=== PATIENT | male | born 1935 | race Caucasian/White ===

== ENCOUNTER 2017-09-20 03:14 | Inpatient (IN) ==
[2017-09-20] MEDS ORDERED: Ipratropium/Albuterol Neb 3 ML IH ONE (03:22)
[2017-09-20] MEDS ORDERED: Nitroglycerin 1 INCH/GM PACKET TP ONE (03:25)
[2017-09-20] MEDS ORDERED: Furosemide 40 MG/4 ML VIAL IVP ONE (03:25)
[2017-09-20 03:37] LABS: Basophils % 0.3 %; Eosinophils # 0.2 K/mcL (0.0-0.6); Hematocrit 36.8 % (37.5-50.1); Hemoglobin 11.1 g/dL (12.9-16.9); Immature Granulocytes % 0.4 % (0-4); Lymphocytes # 0.9 K/mcL (0.6-4.6); Lymphocytes % 8.8 %; Mean Corpuscular HGB Conc 30.2 g/dL (31.6-35.5); Mean Corpuscular Hemoglobin 27.5 pg (28.0-33.3); Mean Corpuscular Volume 91.1 fL (83.0-100.0); Mean Platelet Volume 9.2 fL (9.4-12.4); Monocytes # 0.9 K/mcL (0.0-1.3); Monocytes % 9.2 %; Neutrophils # 8.1 K/mcL (1.6-8.9); Platelet Count 295 K/mcL (140-400); Red Blood Count 4.04 M/mcL (4.19-5.50); Red Cell Distribution Width 14.5 % (11.5-14.5); Segmented Neutrophils % 79.3 %
[2017-09-20 03:55] LABS: Prothrombin Time 21.5 Seconds (9.4-12.1)
[2017-09-20 03:58] LABS: Activated Partial Thrombo Time 32.7 Seconds (26.0-36.0)
[2017-09-20 04:03] LABS: Calcium 9.8 mg/dL (8.6-10.3); Potassium 4.7 mEq/L (3.5-5.1)
[2017-09-20 04:07] LABS: Troponin I 0.05 ng/mL (< 0.04)
--- NOTE | 2017-09-20 04:12 | Emergency Department Note ---
Disposition Clinical Impression: CHF (congestive heart failure) Qualifiers: Heart failure type: diastolic Heart failure chronicity: acute on chronic Qualified Code(s): I50.33 - Acute on chronic diastolic (congestive) heart failure COPD (chronic obstructive pulmonary disease) Qualifiers: COPD type: unspecified COPD Qualified Code(s): J44.9 - Chronic obstructive pulmonary disease, unspecified Disposition: Admitted As Inpatient Condition: Fair Time of Disposition: 04:27 SOB HPI - General Chief Complaint: ED Shortness of Breath/Dyspnea Stated Complaint: Difficulty breathing Time Seen by Provider: 09/20/17 03:19 Source: patient, EMS Mode of arrival: ambulatory Limitations: no limitations Nursing Notes Reviewed: Yes Vital Signs Reviewed: Yes - History of Present Illness 82-year-old male presents to the emergency department complaining of shortness of breath. Patient was recently discharged out of [facility] for CHF and having a pacemaker placed at that time. He was doing well when also and sitting down in his chair he started having shortness of breath. Patient has a history of COPD. He is always on 2.5 L of oxygen via nasal cannula. He has never had to be intubated. Patient states that he has been taking his normal medications. He is on Coumadin as he does have history of A. fib. Has been well controlled. He states he has not had any chest pain. EMS did give him albuterol treatment as they felt better after that. Patient otherwise has no complaints having fevers, nausea, vomiting, chills, back pain, neck pain, headache, blurry vision, chest pain, abdominal pain, pain with urination, changes in bowel movement, pain or tingling on the arms or legs or generalized weakness. - Related Data Home Medications Medication Instructions Recorded Confirmed Albuterol Neb [Proventil Neb] 3 ml IH Q4-6H PRN 10/29/15 08/09/17 Atorvastatin [Lipitor] 80 mg PO DAILY 10/29/15 08/09/17 Fenofibrate 145 mg PO DAILY 10/29/15 08/09/17 Amlodipine Besylate 10 mg PO DAILY 05/21/16 08/09/17 Clopidogrel [Plavix] 75 mg PO DAILY 05/21/16 08/09/17 Nystatin POWDER [Nystop] 1 appl TP BID 05/21/16 08/09/17 Warfarin perPT [Coumadin perPT] 5 mg PO DAILY 05/21/16 08/09/17 Albuterol Sulfate [Proair Hfa] 2 puff IH Q4H PRN 06/30/16 08/09/17 Ferrous Sulfate [Iron] 325 mg PO DAILY 06/30/16 08/09/17 Multivitamin [Multi-Day Vitamins] 1 tab PO DAILY 06/30/16 08/09/17 Oxygen 1 each .ROUTE AD 06/30/16 08/09/17 Warfarin [Coumadin] 7.5 mg PO Q48H 06/30/16 08/09/17 Docusate Sodium [Stool Softener] 100 mg PO DAILY 03/15/17 08/09/17 Metoprolol Succinate 100 mg PO DAILY 03/15/17 08/09/17 dilTIAZem HCl [Diltiazem 24Hr ER] 120 mg PO DAILY 08/09/17 08/09/17 Previous Rx's Medication Instructions Recorded Furosemide [Lasix] 40 mg PO DAILY #30 tablet 11/09/15 Omeprazole [PriLOSEC] 20 mg PO DAILY #30 capsule. 11/09/15 Allergies Allergy/AdvReac Type Severity Reaction Status Date / Time No Known Allergies Allergy Verified 09/20/17 03:16 Review of Systems: 10 point review of systems done and negative unless otherwise stated in the history of present illness. All systems ED: reviewed and negative except as stated. Review of Systems: As Per HPI Past Medical History - Past Medical History Attestation: Yes The following information was validated with the patient. Source: patient Medical history: Reports: atrial fibrillation, CHF, COPD, coronary artery disease, GERD, hyperlipidemia, hypertension, other Surgical history: Reports: coronary bypass (CABG), heart valve replacement, herniorrhaphy, hip replacement, sinus surgery, vasectomy Psychiatric history: Reports: no psych history - Social History Smoking Status: Former smoker Smokeless Tobacco Status: No Alcohol use: Reports: none Drug use: Reports: none Physical Exam - General Limitations: no limitations General appearance: alert, in no apparent distress - Head Head exam: atraumatic, normocephalic, normal inspection - Eye Eye exam: Present: normal appearance, PERRL, EOMI - ENT ENT exam: normal exam, normal oropharynx, mucous membranes moist - Neck Neck exam: Present: normal inspection, full ROM, trachea midline - Chest Chest inspection: Present: normal inspection, symmetric chest wall rise - Respiratory Respiratory exam: Present: wheezes (Mild wheezes bilaterally that are noticeable Rales in the bases with deep inspiration.), accessory muscle use. Absent: respiratory distress, prolonged expiratory phase - Cardiovascular Cardiovascular exam: Present: regular rate, normal rhythm, normal heart sounds - Abdominal Exam Abdominal exam: Present: soft, Non-Tender. Absent: tenderness, distention, guarding, rebound, rigidity - Extremities Exam Extremities exam: Present: normal inspection, full ROM, pedal edema (1+ pitting edema bilaterally). Absent: tenderness - Expanded Lower Extremity Exam Neurovascular/Tendon exam: Present: normal capillary refill. Absent: pulse deficit, motor deficit, sensory deficit, tendon deficit - Back Exam Back exam: Present: normal inspection, full ROM. Absent: tenderness, CVA tenderness (R), CVA tenderness (L) - Neurological Exam Neurological exam: Present: alert, oriented X3 - Skin Skin exam: Present: warm, dry, intact, normal color Course Course Narrative: 82-year-old male presented to emergency department complaining of shortness of breath. This is CHF versus COPD exacerbation. They gave him triple DuoNeb treatment did help open his lungs. After listening we did here also we did give him nitro paste as well as 40 mg IV Lasix. Did do basic labs including CBC , BMP, troponin, BNP as well as EKG and chest x-ray. The disposition will be admission. Vital Signs Temperature 97.5 F L 09/20/17 03:17 Pulse Rate 62 09/20/17 03:17 Respiratory Rate 25 09/20/17 03:17 Blood Pressure 165/68 09/20/17 03:17 O2 Sat by Pulse Oximetry 86 09/20/17 03:17 Temperature 97.5 F L 09/20/17 03:17 Pulse Rate 62 09/20/17 03:17 Respiratory Rate 17 09/20/17 03:39 Blood Pressure 165/68 09/20/17 03:17 O2 Sat by Pulse Oximetry 95 09/20/17 04:45 Oxygen Delivery Oxygen Delivery Room Air Shortness of Breath/Dyspnea - MDM Narrative Medical decision making narrative: 82-year-old male presents to the emergency department complaining of shortness of breath. This most likely is CHF did give nitro paste as well as Lasix. Patient doing better after that. He still on 2-1/2 L of oxygen as as well as always on at home. Patient is saturating well on that. X-ray did show pleural effusion possibly pneumonia but this could be CHF. Will not treat Reed Interiano at this time and continue having follows he does have a leukocytosis or fever at this time. Patient is having chest pain. He did have elevated troponin most likely due to demand ischemia from his CHF. EKG had no acute findings. Spoke with the hospitalist Dr. Ortiz agreed to admit the patient to their service. Patient is admitted in stable condition. Chest X-Ray 09/20/17 03:22 IMPRESSION: Right pleural effusion with right basilar atelectasis versus pneumonia. D/ / Agusto Michael MD / Agusto Michael MD Interpreting Provider: Agusto Michael MD - Medical Records Medical records reviewed: Yes I reviewed the patient's medical records. - Lab Data Lab results reviewed: Yes I reviewed the patient's lab results. Result diagrams: 09/20/17 03:22 09/20/17 03:22 Lab Results 09/20/17 09/20/17 09/20/17 Range/Units 03:22 03:22 03:22 WBC 10.2 (4.3-11.1) K/mcL RBC 4.04 L (4.19-5.50) M/mcL Hgb 11.1 L (12.9-16.9) g/dL Hct 36.8 L (37.5-50.1) % MCV 91.1 (83.0-100.0) fL MCH 27.5 L (28.0-33.3) pg MCHC 30.2 L (31.6-35.5) g/dL RDW 14.5 (11.5-14.5) % Plt Count 295 (140-400) K/mcL MPV 9.2 L (9.4-12.4) fL Immature Gran % 0.4 (0-4) % Seg Neutrophils % 79.3 % Lymphocytes % 8.8 % Monocytes % 9.2 % Eosinophils % 2.0 % Basophils % 0.3 % Neutrophils # 8.1 (1.6-8.9) K/mcL Lymphocytes # 0.9 (0.6-4.6) K/mcL Monocytes # 0.9 (0.0-1.3) K/mcL Eosinophils # 0.2 (0.0-0.6) K/mcL Basophils # 0.0 (0.0-0.2) K/mcL PT 21.5 H (9.4-12.1) Seconds INR 2.0 APTT 32.7 (26.0-36.0) Seconds Sodium 140 (136-145) mEq/L Potassium 4.7 (3.5-5.1) mEq/L Chloride 97 L (98-107) mEq/L Carbon Dioxide 37 H (23-29) mEq/L BUN 45 H (8-23) mg/dL Creatinine 1.88 H (0.70-1.30) mg/dL Est GFR ( Amer) 42 L (> 60) Est GFR (Non-Af Amer) 34 L (> 60) BUN/Creatinine Ratio 24 (6-26) Glucose 127 H (70-105) mg/dL Calculated Osmolality 303 H (280-300) Calcium 9.8 (8.6-10.3) mg/dL Troponin I 0.05 H* (< 0.04) ng/mL B-Natriuretic Peptide (Less than 100) pg/mL 09/20/17 Range/Units 03:22 WBC (4.3-11.1) K/mcL RBC (4.19-5.50) M/mcL Hgb (12.9-16.9) g/dL Hct (37.5-50.1) % MCV (83.0-100.0) fL MCH (28.0-33.3) pg MCHC (31.6-35.5) g/dL RDW (11.5-14.5) % Plt Count (140-400) K/mcL MPV (9.4-12.4) fL Immature Gran % (0-4) % Seg Neutrophils % % Lymphocytes % % Monocytes % % Eosinophils % % Basophils % % Neutrophils # (1.6-8.9) K/mcL Lymphocytes # (0.6-4.6) K/mcL Monocytes # (0.0-1.3) K/mcL Eosinophils # (0.0-0.6) K/mcL Basophils # (0.0-0.2) K/mcL PT (9.4-12.1) Seconds INR APTT (26.0-36.0) Seconds Sodium (136-145) mEq/L Potassium (3.5-5.1) mEq/L Chloride (98-107) mEq/L Carbon Dioxide (23-29) mEq/L BUN (8-23) mg/dL Creatinine (0.70-1.30) mg/dL Est GFR ( Amer) (> 60) Est GFR (Non-Af Amer) (> 60) BUN/Creatinine Ratio (6-26) Glucose (70-105) mg/dL Calculated Osmolality (280-300) Calcium (8.6-10.3) mg/dL Troponin I (< 0.04) ng/mL B-Natriuretic Peptide 241 H (Less than 100) pg/mL - Radiology Data Radiology results reviewed: Yes I reviewed the patient's radiology results. - EKG Data EKG attestation: Yes I reviewed and interpreted this EKG. EKG results narrative: EKG done at 0 331 review myself and attending shows atrially placed rhythm as well as a ventricular paced rhythm at a rate of 61, NM interval 174, QRS 03, QTc 525 with a leftward axis there is no acute ST changes no acute T wave of generalized other signs of ischemia. EKG is changed from previous as he was in atrial flutter and tachycardia but recently had a pacemaker since was EKG is changed. Attestation Statement - Attestation Attestation: I examined this patient and my medical decision-making was reviewed with the Resident Physician. I agree with the documented findings, disposition and treatment plan as described except to the extent set forth below. Findings consistent with dyspnea related to heart failure. The patient was recently discharged from [facility] and a pacemaker placed. Now has pleural effusion. Plan to [facility], admitted for dyspnea in the setting of known worsening heart failure.
[2017-09-20] MEDS ORDERED: Acetaminophen 325 MG TABLET PO PRN (04:41)
[2017-09-20] MEDS ORDERED: Naloxone 0.4 MG/ML INJ IVP PRN (04:41)
[2017-09-20] MEDS ORDERED: Ipratropium/Albuterol Neb 3 ML IH PRN (04:44)
--- NOTE | 2017-09-20 04:55 | Internal Med History&Physical ---
Date of Encounter: 09/20/17 Time of Encounter: 04:00 Assessment and Plan (1) Pneumonia Current visit: Yes Status: Acute Patient has increased the shortness of breath. Chest x-ray shows possible pneumonia. Considering patient has COPD. We will treat patient as early stage pneumonia. - Place patient on azithromycin and Rocephin - Continue oxygen supportive treatment Qualifiers: Pneumonia type: due to Pneumococcus Laterality: bilateral Lung location: lower lobe of lung Qualified Code(s): J13 - Pneumonia due to Streptococcus pneumoniae (2) CHF exacerbation Current visit: Yes Status: Acute Patient has history of CHF. Increase the shortness of breath. Mild elevated BNP to 241. Patient is obese so the actual BNP probably even higher. Consider CHF exacerbation. - Place patient on fluid restriction - Strict I and O - Lasix to 40 mg IV daily - Bodyweight daily Qualifiers: Heart failure type: diastolic Qualified Code(s): I50.33 - Acute on chronic diastolic (congestive) heart failure (3) COPD exacerbation Current visit: Yes Status: Acute Patient has a history of COPD. Increased shortness of breath. Patient has a wheezing bilaterally. Consider COPD exacerbation. - Continue antibiotic, steroid, and bronchodilator (4) CKD (chronic kidney disease) Current visit: Yes Status: Acute Patient's creatinine level is at about baseline. Continue closely monitor renal function Qualifiers: Chronic kidney disease stage: stage 3 (moderate) Qualified Code(s): N18.3 - Chronic kidney disease, stage 3 (moderate) (5) DVT prophylaxis Current visit: No Status: Acute Patient is on Coumadin (6) A-fib Current visit: Yes Status: Acute Heart rate is well controlled on pacing rhythm. Continue by mouth Cardizem and metoprolol for rate control. Continue Coumadin for anticoagulation. Qualifiers: Atrial fibrillation type: chronic Qualified Code(s): I48.2 - Chronic atrial fibrillation Internal Medicine - H&P: HPI Chief complaint: Shortness of breath Admitted From: Home Plans for Post Hospital Care: Home History of present illness: Mr. Momin is a 82 year old male with history of A. fib on Coumadin S/P PPM, CHF, CK D, hypertension, COPD, presented to ER for shortness of breath. Patient said the shortness of breath started around 9 PM in the evening. Patient denies chest pain, denies nausea, patient has no cough, no fever. Patient said sitting up makes him feel better. Patient has a mild bilateral leg swelling. Patient denies recent body weight gain. In the emergency room, he was given Lasix, nebulizer, and steroid, his shortness of breath has improved after treatment. He was admitted for further management. Past Med Surg Social Fam HX - Past Medical History Medical history: atrial fibrillation, CHF, COPD, coronary artery disease, GERD, hyperlipidemia, hypertension, other Psychiatric history: no psych history - Past Surgical History Surgical History: coronary bypass (CABG), heart valve replacement, herniorrhaphy , hip replacement, sinus surgery, vasectomy - Social History Smoking Status: Former smoker Smokeless Tobacco Status: No Alcohol use: none Drug use: none - Family History Mother Living Status: Hx Family Cardiac Disorders: Yes (CHF) Hx Family Endocrine Disorder: Yes Father Living Status: Hx Family Cancer: Yes (prostate cancer) Sister Living Status: Hx Family Cardiac Disorders: Yes Brother Family Member Ethnicity: Non- Living Status: Hx Family Cardiac Disorders: No Hx Family Respiratory Disorders: No Hx Family Cancer: Yes (prostate cancer) Hx Family GI Disorders: No Hx Family Endocrine Disorder: No Internal Medicine - H&P: Meds Albuterol Neb [Proventil Neb] 3 ml IH Q4-6H PRN 10/29/15 [History] Atorvastatin [Lipitor] 80 mg PO DAILY 10/29/15 [History] Fenofibrate 145 mg PO DAILY 10/29/15 [History] Furosemide [Lasix] 40 mg PO DAILY #30 tablet 11/09/15 [Rx] Omeprazole [PriLOSEC] 20 mg PO DAILY #30 capsule. 11/09/15 [Rx] Amlodipine Besylate 10 mg PO DAILY 05/21/16 [History] Clopidogrel [Plavix] 75 mg PO DAILY 05/21/16 [History] Nystatin POWDER [Nystop] 1 appl TP BID 05/21/16 [History] Warfarin perPT [Coumadin perPT] 5 mg PO DAILY 05/21/16 [History] Albuterol Sulfate [Proair Hfa] 2 puff IH Q4H PRN 06/30/16 [History] Ferrous Sulfate [Iron] 325 mg PO DAILY 06/30/16 [History] Multivitamin [Multi-Day Vitamins] 1 tab PO DAILY 06/30/16 [History] Oxygen 1 each .ROUTE AD 06/30/16 [History] Warfarin [Coumadin] 7.5 mg PO Q48H 06/30/16 [History] Docusate Sodium [Stool Softener] 100 mg PO DAILY 03/15/17 [History] Metoprolol Succinate 100 mg PO DAILY 03/15/17 [History] dilTIAZem HCl [Diltiazem 24Hr ER] 120 mg PO DAILY 08/09/17 [History] 3 Allergy/AdvReac Type Severity Reaction Status Date / Time No Known Allergies Allergy Verified 09/20/17 03:16 All Systems PM: A 10-system review of systems was performed and is negative for pertinent findings except as documented above in the HPI. - Constitutional Vitals: Temp Pulse Resp BP Pulse Ox 97.5 F L 62 17 165/68 95 09/20/17 03:17 09/20/17 03:17 09/20/17 03:39 09/20/17 03:17 09/20/17 04:45 General appearance: Present: A&O X 3, no acute distress, answers questions appropriately - Head Head exam: Present: atraumatic, normocephalic - Eye Eye exam: Present: PERRL, conjuntiva pink, sclera anicteric Pupils: Present: PERRL - Neck Neck exam general surgery: Present: supple, trachea midline. Absent: lymphadenopathy - Respiratory Respiratory exam: Present: CTAB, wheezes (Scattered wheezes bilaterally). Absent: accessory muscle use, rales, rhonchi - Cardiovascular Cardiovascular exam: Present: RRR, +S1, +S2. Absent: diastolic murmur, gallop, rubs, systolic murmur - GI/Abdominal GI/Abdominal exam: Present: normal bowel sounds, soft, no peritoneal signs. Absent: distended, tenderness - Extremities Exam Extremities exam: Present: pedal edema (Mild pedal edema bilaterally), warm, radial pulses palpable and symmetrical. Absent: calf tenderness, cyanotic - Neurological Exam Neurological exam: Present: CN II-XII intact, oriented X3, no focal deficits. Absent: pronater drift, facial droop, speech deficit - Skin Skin exam: Present: dry, intact Internal Med - H&P Results - Labs CBC & Chem 7: 09/20/17 03:22 09/20/17 03:22 - EKG Data -: EKG Interpreted by Myself (Pacing rhythm) Rate: normal
[2017-09-20] MEDS ORDERED: Azithromycin 500 MG in D5% in Water 250 ML IVPB SCH (05:00)
--- NOTE | 2017-09-20 08:28 | Internal Med Progress Note ---
<Oral Munoz - Last Filed: 09/20/17 13:36> Date of Encounter: 09/20/17 Time of Encounter: 08:26 - Assessment and plan (1) CHF exacerbation Current Visit: Yes Status: Acute Assessment and plan: Patient has history of CHF Last echo was performed on 07/20/16; demonstrated the following: Grossly normal left ventricular size and function. Left ventricular function not well assessed due to atrial flutter with RVR and shadowing from significantly calcified mitral valve. Mildly dilated left atrium. Bioprosthetic aortic valve. Moderate to severe mitral annular calcification. Moderate mitral stenosis. -Increase the shortness of breath -Mild elevated BNP at 241 -Patient is obese so the actual BNP probably even higher -Place patient on fluid restriction; Strict I and O; Bodyweight daily -Lasix 40 mg IV BID Qualifiers: Heart failure type: diastolic Qualified Code(s): I50.33 - Acute on chronic diastolic (congestive) heart failure (2) CAD (coronary artery disease) Current Visit: No Status: Chronic Assessment and plan: -Troponin was slightly elevated at 0.05. -Plavix 75 mg by mouth daily -Lipitor 80 mg by mouth daily -Continuous cardiac monitoring -Echocardiogram has been ordered Qualifiers: Coronary Disease-Associated Artery/Lesion type: [place] artery [place] vs. transplanted heart: [place] heart Associated angina: without angina Qualified Code(s): I25.10 - Atherosclerotic heart disease of [place] coronary artery without angina pectoris (3) COPD exacerbation Current Visit: Yes Status: Acute Assessment and plan: Patient has a history of COPD -Increased shortness of breath; wheezing bilaterally -Duoneb 3 mL inhaled every 4 when necessary -Prednisone 40 mg by mouth daily (4) CKD (chronic kidney disease) Current Visit: Yes Status: Acute Assessment and plan: -Patient's creatinine level is at about baseline -Continue closely monitor renal function Qualifiers: Chronic kidney disease stage: stage 3 (moderate) Qualified Code(s): N18.3 - Chronic kidney disease, stage 3 (moderate) (5) A-fib Current Visit: Yes Status: Acute Assessment and plan: -HR is well controlled on pacing rhythm -Continue Coumadin for anticoagulation -Cardizem CD 120 mg by mouth daily -Metoprolol XL 100 mg by mouth daily Qualifiers: Atrial fibrillation type: chronic Qualified Code(s): I48.2 - Chronic atrial fibrillation (6) DVT prophylaxis Current Visit: No Status: Acute Assessment and plan: -Patient is on Coumadin - Subjective Interval history: 82-year-old male. Presented to ED with shortness of breath. Was recently discharged from [place] for CHF exacerbation; had pacemaker placed at that time. Was doing well. Patient has no history of COPD. On 2.5 L of home O2 at all times. Began to feel short of breath. EMS gave him albuterol treatment; slight improvement in symptoms. Upon arrival, patient was also given Nitropaste and 40 mg IV Lasix. X-ray demonstrated pleural effusion with possible pneumonia. Zithromax and Rocephin were both started. Blood and sputum cultures are pending. BNP was slightly elevated at 241. Patient was placed on Lasix 40 mg IV daily. Troponin was slightly elevated at 0.05. Echocardiogram has been ordered. Patient was also placed on DuoNeb nebs as needed and prednisone 40 mg by mouth daily. Patient has known history of A. fib ; currently on Coumadin. He is currently rate controlled on metoprolol XL and Cardizem CD. - Constitutional Vitals: Temp Pulse Resp BP Pulse Ox 97.6 F 60 15 144/61 97 09/20/17 06:59 09/20/17 06:59 09/20/17 06:59 09/20/17 06:59 09/20/17 06:59 General appearance: Present: A&O X 3, no acute distress, answers questions appropriately - Head Head exam: Present: atraumatic, normocephalic - Eye Eye exam: Present: PERRL, conjuntiva pink, sclera anicteric Pupils: Present: PERRL - Neck Neck exam general surgery: Present: supple, trachea midline. Absent: lymphadenopathy - Respiratory Respiratory exam: Present: CTAB. Absent: accessory muscle use, rales, rhonchi, wheezes - Cardiovascular Cardiovascular exam: Present: RRR, +S1, +S2. Absent: diastolic murmur, gallop, rubs, systolic murmur - GI/Abdominal GI/Abdominal exam: Present: normal bowel sounds, soft, no peritoneal signs. Absent: distended, tenderness - Extremities Exam Extremities exam: Present: warm, radial pulses palpable and symmetrical. Absent : calf tenderness, cyanotic, pedal edema - Neurological Exam Neurological exam: Present: CN II-XII intact, oriented X3, no focal deficits. Absent: pronater drift, facial droop, speech deficit - Skin Skin exam: Present: dry, intact Internal Medicine: Result - Labs CBC & Chem 7: 09/20/17 03:22 09/20/17 03:22 - ABG Interpretation ABG results: PT/INR, D-dimer PT 21.5 Seconds (9.4-12.1) H 09/20/17 03:22 Consult Discharge Plan - Plan Referrals: Ervin Cole MD [Primary Care Provider] - <Maximilian Flynn - Last Filed: 09/20/17 14:57> Date of Encounter: 09/20/17 - Constitutional Vitals: Temp Pulse Resp BP Pulse Ox 97.9 F 60 15 138/62 95 09/20/17 11:30 09/20/17 11:30 09/20/17 11:30 09/20/17 11:30 09/20/17 11:30 Internal Medicine: Result - Labs CBC & Chem 7: 09/20/17 03:22 09/20/17 03:22 - ABG Interpretation ABG results: PT/INR, D-dimer PT 21.5 Seconds (9.4-12.1) H 09/20/17 03:22 - Attending Attestation I performed an independent interview and exam of this patient. I agree with the findings, assessment, and plan of Dr. Munoz, internal medicine corporate communications intern. We are treating patient primarily for acute on chronic diastolic CHF. He appears to responding well to IV Lasix. Does have [id number] stenosis and this may be contributing as well. Did stop antibiotics is patient is not showing any obvious evidence bacterial pneumonia. Continue with oral prednisone for COPD exacerbation. We will need to monitor renal function closely as he is being diuresed. Patient's A. fib is under good rate control, INR is at goal.
[2017-09-20] MEDS ORDERED: cefTRIAXone 1,000 MG in Water for inj. (sterile) 20 ML 10 ML IVP SCH (09:00)
[2017-09-20] MEDS ORDERED: Furosemide 40 MG/4 ML VIAL IVP SCH (09:00)
[2017-09-20] MEDS: Ipratropium/Albuterol Neb 3 ML IH SCH ×3 (09:17→21:23)
[2017-09-20] MEDS: Diltiazem CD (24hr) 120 MG CAPSULE PO SCH (09:46)
[2017-09-20] MEDS: Metoprolol XL (24 HR) Succ 50 MG TAB.ER.24H PO SCH (09:46)
[2017-09-20] MEDS: predniSONE 20 MG TABLET PO SCH (09:46)
[2017-09-20] MEDS: Furosemide 40 MG/4 ML VIAL IVP SCH (17:45)
[2017-09-20] MEDS ORDERED: *HR* Warfarin 5 MG TABLET PO ONE (18:00)
[2017-09-20] MEDS ORDERED: Warfarin perPT PO PRN (18:00)
[2017-09-21] MEDS: Ipratropium/Albuterol Neb 3 ML IH SCH ×4 (04:25→21:48)
[2017-09-21 04:58] LABS: Basophils % 0.1 %; Eosinophils % 0.1 %; Hematocrit 30.7 % (37.5-50.1); Immature Granulocytes % 0.7 % (0-4); Lymphocytes # 0.7 K/mcL (0.6-4.6); Lymphocytes % 6.9 %; Mean Corpuscular HGB Conc 30.3 g/dL (31.6-35.5); Mean Corpuscular Hemoglobin 27.4 pg (28.0-33.3); Mean Corpuscular Volume 90.6 fL (83.0-100.0); Mean Platelet Volume 9.6 fL (9.4-12.4); Monocytes # 0.8 K/mcL (0.0-1.3); Monocytes % 8.5 %; Neutrophils # 7.9 K/mcL (1.6-8.9); Platelet Count 277 K/mcL (140-400); Red Blood Count 3.39 M/mcL (4.19-5.50); Red Cell Distribution Width 14.5 % (11.5-14.5); Segmented Neutrophils % 83.7 %
[2017-09-21 05:04] LABS: Hemoglobin 9.3 g/dL (12.9-16.9)
[2017-09-21 05:10] LABS: INR 1.8
[2017-09-21 05:23] LABS: Calcium 9.3 mg/dL (8.6-10.3); Chol/HDL Ratio 2.6 (0-4.9); Magnesium 2.3 mg/dL (1.6-2.6); Potassium 4.3 mEq/L (3.5-5.1)
[2017-09-21] MEDS: Diltiazem CD (24hr) 120 MG CAPSULE PO SCH (08:47)
[2017-09-21] MEDS: predniSONE 20 MG TABLET PO SCH (08:47)
[2017-09-21] MEDS: Metoprolol XL (24 HR) Succ 50 MG TAB.ER.24H PO SCH (08:47)
[2017-09-21] MEDS: Furosemide 40 MG/4 ML VIAL IVP SCH ×2 (08:48→18:00)
--- NOTE | 2017-09-21 08:52 | Internal Med Progress Note ---
<Oral Munoz - Last Filed: 09/21/17 11:37> Date of Encounter: 09/21/17 Time of Encounter: 08:50 - Assessment and plan (1) CHF exacerbation Current Visit: Yes Status: Acute Assessment and plan: Patient has history of CHF Last echo was performed on 07/20/16; demonstrated the following: Grossly normal left ventricular size and function. Left ventricular function not well assessed due to atrial flutter with RVR and shadowing from significantly calcified mitral valve. Mildly dilated left atrium. Bioprosthetic aortic valve. Moderate to severe mitral annular calcification. Moderate mitral stenosis. -Increase the shortness of breath -Mild elevated BNP at 241 -Patient is obese so the actual BNP probably even higher -Place patient on fluid restriction; Strict I and O; Bodyweight daily -We will switch Lasix to oral Qualifiers: Heart failure type: diastolic Qualified Code(s): I50.33 - Acute on chronic diastolic (congestive) heart failure (2) Anemia Current Visit: Yes Status: Acute Assessment and plan: Patient experienced a significant drop in hemoglobin in the last 24 hours -Hemoglobin decreased from 11.1 to 9.3. -Patient denies having any blood in his stools. -Denies having any weakness, dizziness, shortness of breath, syncope, or lightheadedness. -We will trend hemoglobin Qualifiers: Qualified Code(s): D64.9 - Anemia, unspecified (3) CAD (coronary artery disease) Current Visit: No Status: Chronic Assessment and plan: -Troponin was slightly elevated at 0.05. -Plavix 75 mg by mouth daily -Lipitor 80 mg by mouth daily -Continuous cardiac monitoring -Echocardiogram has been ordered Qualifiers: Coronary Disease-Associated Artery/Lesion type: [place] artery [place] vs. transplanted heart: [place]rokee heart Associated angina: without angina Qualified Code(s): I25.10 - Atherosclerotic heart disease of [place] coronary artery without angina pectoris (4) COPD exacerbation Current Visit: Yes Status: Acute Assessment and plan: Patient has a history of COPD -Increased shortness of breath; wheezing bilaterally -Duoneb 3 mL inhaled every 4 when necessary -Prednisone 40 mg by mouth daily (5) CKD (chronic kidney disease) Current Visit: Yes Status: Acute Assessment and plan: -Patient's creatinine level is at about baseline -Continue closely monitor renal function Qualifiers: Chronic kidney disease stage: stage 3 (moderate) Qualified Code(s): N18.3 - Chronic kidney disease, stage 3 (moderate) (6) A-fib Current Visit: Yes Status: Acute Assessment and plan: -HR is well controlled on pacing rhythm -Continue Coumadin for anticoagulation -Cardizem CD 120 mg by mouth daily -Metoprolol XL 100 mg by mouth daily Qualifiers: Atrial fibrillation type: chronic Qualified Code(s): I48.2 - Chronic atrial fibrillation (7) DVT prophylaxis Current Visit: No Status: Acute Assessment and plan: -Patient is on Coumadin - Subjective Interval history: Patient was seen and examined at bedside this morning. Patient states that he is feeling well today. Denies having any cough, shortness of breath, fever, chills, orthopnea, or fatigue. Patient reports that his lower extremity edema has significantly improved since yesterday. Reports that he is urinating without difficulty. He is resting comfortably in bed and denies having any complaints this time. - Constitutional Vitals: Temp Pulse Resp BP Pulse Ox 97.8 F 61 16 148/90 97 09/21/17 07:21 09/21/17 07:21 09/21/17 07:21 09/21/17 07:21 09/21/17 07:21 General appearance: Present: A&O X 3, no acute distress, answers questions appropriately - Head Head exam: Present: atraumatic, normocephalic - Eye Eye exam: Present: PERRL, conjuntiva pink, sclera anicteric Pupils: Present: PERRL - Neck Neck exam general surgery: Present: supple, trachea midline. Absent: lymphadenopathy - Respiratory Respiratory exam: Present: CTAB. Absent: accessory muscle use, rales, rhonchi, wheezes - Cardiovascular Cardiovascular exam: Present: RRR, +S1, +S2. Absent: diastolic murmur, gallop, rubs, systolic murmur - GI/Abdominal GI/Abdominal exam: Present: normal bowel sounds, soft, no peritoneal signs. Absent: distended, tenderness - Extremities Exam Extremities exam: Present: pedal edema, warm, radial pulses palpable and symmetrical. Absent: calf tenderness, cyanotic Additional comments: Trace pedal edema present bilaterally; significantly improved from yesterday. - Neurological Exam Neurological exam: Present: CN II-XII intact, oriented X3, no focal deficits. Absent: pronater drift, facial droop, speech deficit - Skin Skin exam: Present: dry, intact Internal Medicine: Result - Labs CBC & Chem 7: 09/21/17 04:15 09/21/17 04:15 Labs: Short CBC 09/21/17 Range/Units 04:15 WBC 9.5 (4.3-11.1) K/mcL Hgb 9.3 L D (12.9-16.9) g/dL Hct 30.7 L (37.5-50.1) % Plt Count 277 (140-400) K/mcL Neutrophils # 7.9 (1.6-8.9) K/mcL BMP 09/21/17 04:15 Sodium 142 Potassium 4.3 Chloride 96 L Carbon Dioxide 40 H* BUN 48 H Creatinine 1.78 H Glucose 110 H Calcium 9.3 - ABG Interpretation ABG results: PT/INR, D-dimer PT 20.0 Seconds (9.4-12.1) H 09/21/17 04:15 - Impressions Impressions Echocardiogram 09/20/17 04:47 Impressions: LVEF 55-60%. Normal LV chamber size, wall thickness and function. Moderate left ventricular diastolic dysfunction. Atypical septal motion consistent with post-operative status. Normal right ventricular structure and function. Moderately dilated left atrium. Bioprosthetic aortic valve not well visualized. Overall, it demonstrates acceptable function by Doppler. Moderate to severe mitral annular calcification. Mildly thickened mitral valve leaflets. Severe mitral stenosis. Mean gradient 12 mmHg. Peak velocity 3.10 m/s. No evidence of pulmonary hypertension. A device lead was visualized in the right atrium and right ventricle. Left Ventricular Wall Motion: Rest Echo Findings All wall segments showed normal motion. Findings: Study Quality * Technically adequate exam. ECG Findings * Normal sinus rhythm. Left Ventricle * LVEF 55-60%. * Normal LV chamber size, wall thickness and function. * Moderate left ventricular diastolic dysfunction. * Atypical septal motion consistent with post-operative status. Right Ventricle * Normal right ventricular structure and function. Left Atrium * Moderately dilated left atrium. Right Atrium * Mildly dilated right atrium. Interatrial Septum * Interatrial septum not well evaluated. Aortic Valve * Bioprosthetic aortic valve not well visualized. Overall, it demonstrates normal acceptable function by Doppler. * No significant prosthetic aortic stenosis. Mean gradient 17 mmHg. * No aortic regurgitation. Mitral Valve * Moderate to severe mitral annular calcification. * Mildly thickened mitral valve leaflets. * Trace mitral regurgitation. * Severe mitral stenosis. Mean gradient 12 mmHg. Peak velocity 3.10 m/s. Tricuspid Valve * Normal tricuspid valve structure and function. * Trace tricuspid regurgitation. * No evidence of pulmonary hypertension. Pulmonic Valve * Normal pulmonic valve structure and function. * No pulmonic regurgitation. Aorta * Normally sized aortic root. Pericardium * The pericardium appears normal. IVC * The IVC is not dilated. Device lead * A device lead was visualized in the right atrium and right ventricle. Pulmonary Artery * Normal visualized portions of the main pulmonary artery. Consult Discharge Plan - Plan Referrals: Ervin Cole MD [Primary Care Provider] - <Maximilian Flynn - Last Filed: 09/21/17 13:14> Date of Encounter: 09/21/17 - Constitutional Vitals: Temp Pulse Resp BP Pulse Ox 97.6 F 60 18 144/60 95 09/21/17 11:16 09/21/17 11:16 09/21/17 11:16 09/21/17 11:16 09/21/17 11:16 Internal Medicine: Result - Labs CBC & Chem 7: 09/21/17 04:15 09/21/17 04:15 Labs: Short CBC 09/21/17 Range/Units 04:15 WBC 9.5 (4.3-11.1) K/mcL Hgb 9.3 L D (12.9-16.9) g/dL Hct 30.7 L (37.5-50.1) % Plt Count 277 (140-400) K/mcL Neutrophils # 7.9 (1.6-8.9) K/mcL BMP 09/21/17 04:15 Sodium 142 Potassium 4.3 Chloride 96 L Carbon Dioxide 40 H* BUN 48 H Creatinine 1.78 H Glucose 110 H Calcium 9.3 - ABG Interpretation ABG results: PT/INR, D-dimer PT 20.0 Seconds (9.4-12.1) H 09/21/17 04:15 - Impressions Impressions Echocardiogram 09/20/17 04:47 Impressions: LVEF 55-60%. Normal LV chamber size, wall thickness and function. Moderate left ventricular diastolic dysfunction. Atypical septal motion consistent with post-operative status. Normal right ventricular structure and function. Moderately dilated left atrium. Bioprosthetic aortic valve not well visualized. Overall, it demonstrates acceptable function by Doppler. Moderate to severe mitral annular calcification. Mildly thickened mitral valve leaflets. Severe mitral stenosis. Mean gradient 12 mmHg. Peak velocity 3.10 m/s. No evidence of pulmonary hypertension. A device lead was visualized in the right atrium and right ventricle. Left Ventricular Wall Motion: Rest Echo Findings All wall segments showed normal motion. Findings: Study Quality * Technically adequate exam. ECG Findings * Normal sinus rhythm. Left Ventricle * LVEF 55-60%. * Normal LV chamber size, wall thickness and function. * Moderate left ventricular diastolic dysfunction. * Atypical septal motion consistent with post-operative status. Right Ventricle * Normal right ventricular structure and function. Left Atrium * Moderately dilated left atrium. Right Atrium * Mildly dilated right atrium. Interatrial Septum * Interatrial septum not well evaluated. Aortic Valve * Bioprosthetic aortic valve not well visualized. Overall, it demonstrates normal acceptable function by Doppler. * No significant prosthetic aortic stenosis. Mean gradient 17 mmHg. * No aortic regurgitation. Mitral Valve * Moderate to severe mitral annular calcification. * Mildly thickened mitral valve leaflets. * Trace mitral regurgitation. * Severe mitral stenosis. Mean gradient 12 mmHg. Peak velocity 3.10 m/s. Tricuspid Valve * Normal tricuspid valve structure and function. * Trace tricuspid regurgitation. * No evidence of pulmonary hypertension. Pulmonic Valve * Normal pulmonic valve structure and function. * No pulmonic regurgitation. Aorta * Normally sized aortic root. Pericardium * The pericardium appears normal. IVC * The IVC is not dilated. Device lead * A device lead was visualized in the right atrium and right ventricle. Pulmonary Artery * Normal visualized portions of the main pulmonary artery. - Attending Attestation I performed an independent interview and examine this patient. I agree with the findings, assessment, and plan of Dr. Munoz, internal medicine corporate communications intern. Patient has been improving with IV Lasix. We will change him to oral Lasix today. He still has some mild shortness of breath and we will keep him an additional day. Fluid restriction. Patient is on a beta gustabo. Patient's hemoglobin did drop slightly, which is not warm to be expected with diuresis. We will watch him an additional day for this as well. No bleeding noted. Patient otherwise is continuing to improve. We will increase activity today. All else as above.
--- NOTE | 2017-09-21 14:48 | Electrocardiograph Report ---
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
[2017-09-21] MEDS ORDERED: *HR* Warfarin 7.5 MG TABLET PO ONE (18:00)
[2017-09-22] MEDS: Ipratropium/Albuterol Neb 3 ML IH SCH ×2 (03:44→10:08)
[2017-09-22 04:19] LABS: INR 2.1; Prothrombin Time 23.1 Seconds (9.4-12.1)
[2017-09-22] MEDS ORDERED: hydrALAZINE 25 MG TABLET PO PRN (07:47)
[2017-09-22 07:52] VITALS: BP 169/74
[2017-09-22] MEDS: Furosemide 40 MG/4 ML VIAL IVP SCH (09:17)
[2017-09-22] MEDS: Diltiazem CD (24hr) 120 MG CAPSULE PO SCH (09:17)
[2017-09-22] MEDS: predniSONE 20 MG TABLET PO SCH (09:17)
[2017-09-22] MEDS: Metoprolol XL (24 HR) Succ 50 MG TAB.ER.24H PO SCH (09:17)
--- NOTE | 2017-09-22 10:04 | Discharge Summary ---
- NOTES TO OUTPATIENT PROVIDER Notes to Outpatient Provider: Admitted for CHF. Lasix/Rx adjusted. Will need BMP in 3-4 days and likely further titration of his CHF Medications. CXR PA and LAT in 4 weeks. PT/INR monitoring as before Orders not resulted at time of discharge: Pending orders 09/20/17 07:58 Culture,Sputum with Gram Stain [RM] Stat 09/20/17 08:30 Culture,Blood,Additional [BC] Stat 09/23/17 04:00 PT/INR [Prothrombin Time INR] [COAG] AM 0400 Date of Encounter: 09/22/17 Time of Encounter: 10:15 - Discharge Diagnosis (1) CHF exacerbation Priority: Primary Status: Acute Qualifiers: Heart failure type: diastolic Qualified Code(s): I50.33 - Acute on chronic diastolic (congestive) heart failure (2) Anemia Priority: Secondary Status: Acute Qualifiers: Anemia type: unspecified type Qualified Code(s): D64.9 - Anemia, unspecified Hospital course: Mr. Momin is a 82 year old male with history of A. fib on Coumadin S/P PPM, CHF, CKD Stage 3, hypertension, COPD, presented to ER for shortness of breath. Patient said the shortness of breath started around 9 PM in the evening. Patient denies chest pain, denies nausea, patient has no cough, no fever. Patient said sitting up makes him feel better. Patient has a mild bilateral leg swelling. Patient denies recent body weight gain. In the emergency room, he was given Lasix, nebulizer, and steroid, his shortness of breath has improved after treatment. He was admitted for further management. 09/22: Patient was treated for CHF exacerbation. Patient had an echocardiogram which showed EF of 55-60%, with moderate diastolic dysfunction. It was felt that patient had acute on chronic diastolic dysfunction. Was placed on IV Lasix and had a good diuresis. Patient has known atrial fibrillation for which he was continued on Coumadin and his INR remained therapeutic on day of discharge.. Despite diuresis patient's creatinine did improve from an admission level of 1.88-1.66 on day of discharge. Patient remained on beta marilyn of Toprol 100 mg by mouth daily for elevated blood pressures. His blood pressure remained elevated and day of discharge and we did add hydralazine 25 mg by mouth 3 times a day. He will continue on Lasix at 40 mg by mouth twice a day, as well as Cardizem 120 mg by mouth daily. he was also placed on a steroid taper as he was felt to have a COPD exacerbation. Patient will taper his steroid over the next week. He did have a chest x-ray on admission which showed a small right pleural effusion as well as right basilar atelectasis. It was not felt to represent pneumonia. 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 She otherwise on day of discharge is feeling well, ambulating without difficulty. Symptomatically improved, states he was back to "normal". I do lengthy discussion with the patient about getting daily weights and we did provide him with CHF discharge instructions. We will request he have a BMP in 3 -4 days. We will up with his primary care provider at that time as well. Patient was deemed stable for discharge. 39 minutes spent on discharge and coordination of care. Of note patient did have a mildly elevated troponin of 0.05 on admission. This was felt to be due to CHF and probable demand ischemia. He did not have any chest pain. EKG revealed a paced rhythm. On follow-up with his primary care provider patient will likely need further up titration of his antihypertensives. CHF Core measures: No ONEAL due to CKD (PCP can readdress in the future) No RB due to CKD (ECP can readdress in the future) Beta Marilyn On coumadin for A fib Echo done this admission CHF DC instructions provided Pt is a nonsmoker Discharge discussed with: patient - Time Spent with Patient Total time spent providing and/or coordinating discharge services: Greater than 30 minutes (39) - Discharge Medications Prescriptions: hydrALAZINE [HydrALAZINE] 25 mg PO Q8HR PRN 30 Days #90 tablet PRN Reason: Blood Pressure - High Furosemide [Lasix] 40 mg PO BID 30 Days #60 tab GuaiFENesin ER [Mucinex] 600 mg PO BID 10 Days #20 tbbp.12hr Metoprolol XL (24 HR) Succ [Toprol Xl] 100 mg PO DAILY 30 Days #30 tab.er.24h predniSONE [PredniSONE] 10 mg PO DAILY 7 Days #13 tablet Home Medications: Albuterol Neb [Proventil Neb] 3 ml IH Q4-6H PRN 10/29/15 [History] Atorvastatin [Lipitor] 80 mg PO DAILY 10/29/15 [History] Fenofibrate 145 mg PO DAILY 10/29/15 [History] Omeprazole [PriLOSEC] 20 mg PO DAILY #30 capsule. 11/09/15 [Rx] Clopidogrel [Plavix] 75 mg PO DAILY 05/21/16 [History] Nystatin POWDER [Nystop] 1 appl TP BID 05/21/16 [History] Albuterol Sulfate [Proair Hfa] 2 puff IH Q4H PRN 06/30/16 [History] Ferrous Sulfate [Iron] 325 mg PO DAILY 06/30/16 [History] Multivitamin [Multi-Day Vitamins] 1 tab PO DAILY 06/30/16 [History] Oxygen 1 each .ROUTE AD 06/30/16 [History] Docusate Sodium [Stool Softener] 100 mg PO DAILY 03/15/17 [History] Amiodarone [Cordarone] 200 mg PO DAILY 09/20/17 [History] Diltiazem CD (24hr) [Cardizem CD] 300 mg PO DAILY 09/20/17 [History] Acetaminophen [Tylenol] 650 mg PO Q6HR PRN tablet 09/22/17 [Rx] Diltiazem CD (24hr) [Cardizem CD] 120 mg PO DAILY #0 cap.er.24h 09/22/17 [Rx] Furosemide [Lasix] 40 mg PO BID 30 Days #60 tab 09/22/17 [Rx] GuaiFENesin ER [Mucinex] 600 mg PO BID 10 Days #20 tbbp.12hr 09/22/17 [Rx] Ipratropium/Albuterol Neb [Duoneb] 3 ml IH [id number] inhsol 09/22/17 [Rx] Metoprolol XL (24 HR) Succ [Toprol Xl] 100 mg PO DAILY 30 Days #30 tab.er.24h [Rx] Warfarin perPT [Coumadin perPT] 1 each PO DAILY@1800 PRN each 09/22/17 [Rx] hydrALAZINE [HydrALAZINE] 25 mg PO Q8HR PRN 30 Days #90 tablet 09/22/17 [Rx] predniSONE [PredniSONE] 10 mg PO DAILY 7 Days #13 tablet 09/22/17 [Rx] Allergies/Adverse Reactions: 3 Allergy/AdvReac Type Severity Reaction Status Date / Time No Known Allergies Allergy Verified 09/20/17 03:16 Date of admission: 09/20/17 04:41 Primary care physician: Ervin Cole MD Consults: 09/20/17 13:31 Consult to Nurse Navigator [CONS] Routine Comment: COPD, CHF, and pneumonia Anticipated date of discharge: 09/22/17 - Constitutional Vitals: Temp Pulse Resp BP Pulse Ox 97.7 F 60 16 169/74 98 09/22/17 07:49 09/22/17 07:49 09/22/17 07:49 09/22/17 07:49 09/22/17 07:49 General appearance: Present: A&O X 3, no acute distress, answers questions appropriately - Patient Status Disposition: Home, Self-Care Condition: Fair Functional capacity at discharge: independent ambulation Overall status at discharge: patient is back to baseline - Ambulatory Orders Ambulatory Orders: Basic Metabolic Panel [CHEM] Time Frame: 3 Days, Facility: [facility], Location: Lab - Discharge Instructions Follow Up With: Ervin Cole MD [Primary Care Provider] - Additional Instructions: BMP in 3-4 days Please provide pt with CHF dc instructions, please have pt weigh himself every AM. - Diet and Activity Activity: increase activity as tolerated Diet: low fat, low cholesterol, low salt diet
[2017-09-22 10:26] LABS: Basophils % 0.3 %; Eosinophils # 0.2 K/mcL (0.0-0.6); Eosinophils % 1.4 %; Hemoglobin 10.2 g/dL (12.9-16.9); Immature Granulocytes % 0.8 % (0-4); Mean Corpuscular Hemoglobin 27.3 pg (28.0-33.3); Mean Corpuscular Volume 91.2 fL (83.0-100.0); Monocytes # 0.8 K/mcL (0.0-1.3); Monocytes % 8.1 %; Neutrophils # 8.2 K/mcL (1.6-8.9); Platelet Count 279 K/mcL (140-400); Red Blood Count 3.73 M/mcL (4.19-5.50); Red Cell Distribution Width 14.4 % (11.5-14.5); Segmented Neutrophils % 79.4 %
[2017-09-22 10:53] LABS: Calcium 9.8 mg/dL (8.6-10.3); Potassium 3.4 mEq/L (3.5-5.1)
[2017-09-22] MEDS ORDERED: NON-FORMULARY MEDICATION 1 EACH EACH (Oxygen [Oxygen] 1 EACH) SCH (11:15)
[2017-09-22] MEDS ORDERED: Albuterol 2.5 MG/3 ML NEBULIZER IH PRN (12:00)
[2017-09-22] MEDS ORDERED: *HR* Warfarin 5 MG TABLET PO ONE (18:00)
[2017-09-22] MEDS ORDERED: Nystatin POWDER 30 GM BOTTLE TP SCH (21:00)
[2017-09-23] MEDS ORDERED: Furosemide 40 MG TABLET PO SCH (08:00)
[2017-09-23] MEDS ORDERED: Diltiazem CD (24hr) 120 MG CAPSULE PO SCH (09:00)
[2017-09-23] MEDS ORDERED: Fenofibrate 54 MG TABLET PO SCH (09:00)
[2017-09-23] MEDS ORDERED: *HR* Amiodarone 200 MG TABLET PO SCH (09:00)
[2017-09-23] MEDS ORDERED: Multivit/Ca/Min/Fe/FA 1 TAB TABLET PO SCH (09:00)
[2017-09-23] MEDS ORDERED: Diltiazem CD (24hr) 300 MG CAPSULE PO SCH (09:00)
== END 2017-09-22 14:30 | disposition home or self-care (01) | DRG 291 ==
LOC: 2NENU 03:14 → EMEROO 03:14 → 2NENU 04:50
PROVIDERS: ADMIT Internal Medicine Hematology & Oncology; ATTEND Internal Medicine

== ENCOUNTER 2018-01-29 13:29 | Observation (INO) ==
[2018-01-29] MEDS ORDERED: 0.9 % Sodium Chloride 1,000 ML IVC ONE (13:53)
[2018-01-29 14:02] LABS: Basophils % 0.3 %; Eosinophils # 0.3 K/mcL (0.0-0.6); Eosinophils % 3.1 %; Hematocrit 35.5 % (37.5-50.1); Hemoglobin 11.2 g/dL (12.9-16.9); Lymphocytes # 0.9 K/mcL (0.6-4.6); Lymphocytes % 8.9 %; Mean Corpuscular HGB Conc 31.5 g/dL (31.6-35.5); Mean Corpuscular Volume 95.2 fL (83.0-100.0); Mean Platelet Volume 9.6 fL (9.4-12.4); Neutrophils # 7.4 K/mcL (1.6-8.9); Platelet Count 262 K/mcL (140-400); Red Blood Count 3.73 M/mcL (4.19-5.50); Red Cell Distribution Width 13.8 % (11.5-14.5); Segmented Neutrophils % 76.7 %
--- NOTE | 2018-01-29 14:08 | Emergency Department Note ---
Disposition Clinical Impression: Elevated troponin GI bleed Qualifiers: GI bleed type/associated pathology: unspecified gastrointestinal hemorrhage type Qualified Code(s): K92.2 - Gastrointestinal hemorrhage, unspecified Disposition: Admitted As Inpatient Condition: Good Time of Disposition: 14:05 GI Bleed HPI - General Chief complaint: ED GI Bleed Stated complaint: Black stool/weakness Time Seen by Provider: 01/29/18 13:38 Source: patient, family Limitations: no limitations Nursing Notes Reviewed: Yes Vital Signs Reviewed: Yes - History of Present Illness HPI Narrative: Patient presents today for evaluation of dark stools and generalized weakness. Patient states symptoms have been going on for approximately 2 weeks and progressively worse in nature. He has noticed dark stools however he does take an iron supplement. They have become more dark over the last couple of days. He has noticed increasing weakness which she describes as exertional. Associated dizziness with standing up. Patient denies chest pain. There is no shortness of breath at rest. - Related Data Home Medications Medication Instructions Recorded Confirmed Albuterol Neb [Proventil Neb] 3 ml IH Q4-6H PRN 10/29/15 01/29/18 Atorvastatin [Lipitor] 80 mg PO DAILY 10/29/15 01/29/18 Clopidogrel [Plavix] 75 mg PO DAILY 05/21/16 01/29/18 Albuterol Sulfate [Proair Hfa] 2 puff IH Q4H PRN 06/30/16 01/29/18 Ferrous Sulfate [Iron] 325 mg PO DAILY 06/30/16 01/29/18 Oxygen 1 each .ROUTE AD 06/30/16 01/29/18 Docusate Sodium [Stool Softener] 100 mg PO DAILY 03/15/17 01/29/18 Amiodarone [Cordarone] 200 mg PO DAILY 09/20/17 01/29/18 Diltiazem CD (24hr) [Cardizem CD] 300 mg PO DAILY 09/20/17 01/29/18 Fenofibrate Nanocrystallized 145 mg PO DAILY 01/29/18 01/29/18 [Fenofibrate] Warfarin Sodium [Warfarin Sodium] 5 mg PO MOTUWEFRSA 01/29/18 01/29/18 Warfarin Sodium [Warfarin Sodium] 7.5 mg PO SUTH 01/29/18 01/29/18 Previous Rx's Medication Instructions Recorded Omeprazole [PriLOSEC] 20 mg PO DAILY #30 capsule. 11/09/15 Acetaminophen [Tylenol] 650 mg PO Q6HR PRN tablet 09/22/17 Furosemide [Lasix] 40 mg PO BID 30 Days #60 tab 09/22/17 GuaiFENesin ER [Mucinex] 600 mg PO BID #20 tbbp.12hr 09/22/17 Ipratropium/Albuterol Neb [Duoneb] 3 ml IH [id number] inhsol 09/22/17 Metoprolol XL (24 HR) Succ [Toprol 100 mg PO DAILY 30 Days #30 09/22/17 XL] tab.er.24h hydrALAZINE [HydrALAZINE] 25 mg PO Q8HR PRN 30 Days #90 09/22/17 tablet Allergies Allergy/AdvReac Type Severity Reaction Status Date / Time No Known Allergies Allergy Verified 01/29/18 15:21 Review of Systems: CONSTITUTIONAL: Weakness and generalized fatigue No weight loss, fever, chills HEENT: Eyes: No visual changes. Ears, Nose, Throat: No hearing loss, difficulty talking or unable to swallow. SKIN: No rash or itching. CARDIOVASCULAR: No chest pain, chest pressure or chest discomfort. No palpitations or edema. RESPIRATORY: Shortness of breath with exertion. GASTROINTESTINAL: No anorexia, nausea, vomiting or diarrhea. No abdominal pain or blood. GENITOURINARY: No burning on urination or hematuria. NEUROLOGICAL: No headache, dizziness, syncope, paralysis, ataxia, numbness or tingling in the extremities. No change in bowel or bladder control. MUSCULOSKELETAL: No muscle pain, back pain, joint pain or stiffness. Past Medical History - Past Medical History Medical history: Reports: atrial fibrillation, CHF, COPD, coronary artery disease, GERD, hyperlipidemia, hypertension, other Surgical history: Reports: coronary bypass (CABG), heart valve replacement, herniorrhaphy, hip replacement, sinus surgery, vasectomy, pacemaker Psychiatric history: Reports: no psych history - Social History Smoking Status: Former smoker Smokeless Tobacco Status: No Alcohol use: Reports: none Drug use: Reports: none Physical Exam General: Well appearing, nontoxic, no acute distress Head: Normocephalic Atraumatic Eyes: PERRL, EOMI ENT: Airway patent, no stridor Neck: supple Chest: Lungs clear to auscultation bilateral Cardiac: Regular rate and rhythm, no murmurs, rubs or gallops Abdomen: soft, nontender, nondistended; no guarding, rebound, or tenderness to percussion : Rectal exam with melena and enlarged prostate. Musculoskeletal: Calves symmetric, nontender, no palpable cord Skin: No rash, normal skin tone Neuro: Alert and Oriented to person, place, and time; No focal deficit, - General Limitations: no limitations General appearance: alert, in no apparent distress Course - Reevaluation(s) Reevaluation #1: Patient relatively comfortable resting in bed. No complaints when resting. He does take iron however his stool was concerning for melanotic. Troponin slightly elevated. EKG without changes. Denies chest pain. Patient will be admitted for further evaluation. EKG with no changes from previous EKG of 09/20/17. - Consultations Consultation #1: Discussed with hospitalist. Recommends GI consult. Patient accepted to [facility]. Consultation #2: A page has been placed to GI. A consult placed in the computer. Patient can be evaluated on the medical floor. Discussed with Dr. Sosa. Pt will consulted on. BID protonix is okay to start. Vital Signs Temperature 97.5 F L 01/29/18 13:29 Pulse Rate 79 01/29/18 13:29 Respiratory Rate 18 01/29/18 13:29 Blood Pressure 131/72 01/29/18 13:29 O2 Sat by Pulse Oximetry 94 01/29/18 13:29 Temperature 97.8 F 01/29/18 18:38 Pulse Rate 61 01/29/18 18:38 Respiratory Rate 18 01/29/18 21:51 Blood Pressure 149/64 01/29/18 18:38 O2 Sat by Pulse Oximetry 98 01/29/18 21:51 Oxygen Delivery Oxygen Delivery Room Air GI Bleed - Medical Records Medical records reviewed: Yes I reviewed the patient's medical records. - Lab Data Lab results reviewed: Yes I reviewed the patient's lab results. Result diagrams: 01/29/18 13:49 01/29/18 13:49 Lab Results 01/29/18 01/29/18 01/29/18 Range/Units 13:49 13:49 13:49 WBC 9.7 (4.3-11.1) K/mcL RBC 3.73 L (4.19-5.50) M/mcL Hgb 11.2 L (12.9-16.9) g/dL Hct 35.5 L (37.5-50.1) % MCV 95.2 (83.0-100.0) fL MCH 30.0 (28.0-33.3) pg MCHC 31.5 L (31.6-35.5) g/dL RDW 13.8 (11.5-14.5) % Plt Count 262 (140-400) K/mcL MPV 9.6 (9.4-12.4) fL Immature Gran % 1.0 (0-4) % Seg Neutrophils % 76.7 % Lymphocytes % 8.9 % Monocytes % 10.0 % Eosinophils % 3.1 % Basophils % 0.3 % Neutrophils # 7.4 (1.6-8.9) K/mcL Lymphocytes # 0.9 (0.6-4.6) K/mcL Monocytes # 1.0 (0.0-1.3) K/mcL Eosinophils # 0.3 (0.0-0.6) K/mcL Basophils # 0.0 (0.0-0.2) K/mcL PT 35.9 H (9.4-12.1) Seconds INR 3.2 APTT 45.1 H (26.0-36.0) Seconds Sodium 140 (136-145) mEq/L Potassium 4.2 (3.5-5.1) mEq/L Chloride 98 (98-107) mEq/L Carbon Dioxide 34 H (23-29) mEq/L BUN 32 H (8-23) mg/dL Creatinine 1.65 H (0.70-1.30) mg/dL Est GFR ( Amer) 48 L (> 60) Est GFR (Non-Af Amer) 40 L (> 60) BUN/Creatinine Ratio 19 (6-26) Glucose 120 H (70-105) mg/dL Calculated Osmolality 298 (280-300) Calcium 9.8 (8.6-10.3) mg/dL Troponin I 0.04 H* (< 0.04) ng/mL Urine Color (Yellow) Urine Clarity (Clear) Urine pH (5.0-8.0) pH Units Ur Specific [place] (1.010-1.025) Urine Protein (Neg-Trace) mg/dL Urine Glucose (UA) (Normal) mg/dL Urine Ketones (Negative) mg/dL Urine Blood (Negative) Urine Nitrite (Negative) Urine Bilirubin (Negative) Urine Urobilinogen (Normal) mg/dL Ur Leukocyte Esterase (Negative) Urine Microscopic RBC (0-3) per hpf Urine Microscopic WBC (0-3) per hpf Ur Squamous Epith Cells (None-Few) per lpf Urine Bacteria (None-Few) per hpf Hyaline Casts (None-Few) per lpf Ur Culture Indicated? (NO) Stool Occult Bld Scrn (Negative) Blood Type Antibody Screen 01/29/18 01/29/18 01/29/18 Range/Units 13:49 14:37 15:54 WBC (4.3-11.1) K/mcL RBC (4.19-5.50) M/mcL Hgb (12.9-16.9) g/dL Hct (37.5-50.1) % MCV (83.0-100.0) fL MCH (28.0-33.3) pg MCHC (31.6-35.5) g/dL RDW (11.5-14.5) % Plt Count (140-400) K/mcL MPV (9.4-12.4) fL Immature Gran % (0-4) % Seg Neutrophils % % Lymphocytes % % Monocytes % % Eosinophils % % Basophils % % Neutrophils # (1.6-8.9) K/mcL Lymphocytes # (0.6-4.6) K/mcL Monocytes # (0.0-1.3) K/mcL Eosinophils # (0.0-0.6) K/mcL Basophils # (0.0-0.2) K/mcL PT (9.4-12.1) Seconds INR APTT (26.0-36.0) Seconds Sodium (136-145) mEq/L Potassium (3.5-5.1) mEq/L Chloride (98-107) mEq/L Carbon Dioxide (23-29) mEq/L BUN (8-23) mg/dL Creatinine (0.70-1.30) mg/dL Est GFR ( Amer) (> 60) Est GFR (Non-Af Amer) (> 60) BUN/Creatinine Ratio (6-26) Glucose (70-105) mg/dL Calculated Osmolality (280-300) Calcium (8.6-10.3) mg/dL Troponin I (< 0.04) ng/mL Urine Color Yellow (Yellow) Urine Clarity Clear (Clear) Urine pH 6.0 (5.0-8.0) pH Units Ur Specific [place] 1.021 (1.010-1.025) Urine Protein Negative (Neg-Trace) mg/dL Urine Glucose (UA) Normal (Normal) mg/dL Urine Ketones Negative (Negative) mg/dL Urine Blood Negative (Negative) Urine Nitrite Negative (Negative) Urine Bilirubin Negative (Negative) Urine Urobilinogen Normal (Normal) mg/dL Ur Leukocyte Esterase Trace H (Negative) Urine Microscopic RBC 0-3 (0-3) per hpf Urine Microscopic WBC 0-3 (0-3) per hpf Ur Squamous Epith Cells Few (None-Few) per lpf Urine Bacteria None Seen (None-Few) per hpf Hyaline Casts None Seen (None-Few) per lpf Ur Culture Indicated? YES A (NO) Stool Occult Bld Scrn Positive A (Negative) Blood Type O NEGATIVE Antibody Screen NEGATIVE - Radiology Data Radiology results reviewed: Yes I reviewed the patient's radiology results. - EKG Data EKG attestation: Yes I reviewed and interpreted this EKG. EKG results narrative: EKG shows atrial and ventricularly paced rhythm with ventricular rate of 61. VT interval 277. QRS 135. QTC 499. Patient no significant ST elevations or depressions. He does have T-wave inversions in the lateral leads 1 and aVL with our support changes. Old EKG will be obtained.
[2018-01-29 14:11] LABS: INR 3.2; Prothrombin Time 35.9 Seconds (9.4-12.1)
[2018-01-29 14:14] LABS: Activated Partial Thrombo Time 45.1 Seconds (26.0-36.0)
[2018-01-29 14:34] LABS: Troponin I 0.04 ng/mL (< 0.04)
[2018-01-29 14:36] LABS: Calcium 9.8 mg/dL (8.6-10.3); Potassium 4.2 mEq/L (3.5-5.1)
[2018-01-29] MEDS ORDERED: Pantoprazole 40 MG VIAL IVP ONE (15:46)
[2018-01-29 16:07] LABS: Bilirubin,Urine Negative (Negative); Blood,Urine Negative (Negative); Clarity,Urine Clear (Clear); Color,Urine Yellow (Yellow); Glucose,Urine (UA) Normal (Normal); Ketones,Urine Negative (Negative); Leukocyte Esterase,Urine Trace (Negative); Nitrite,Urine Negative (Negative); Protein,Urine Negative (Neg-Trace); Specific Gravity,Urine 1.021 (1.010-1.025); Urobilinogen,Urine Normal (Normal)
[2018-01-29 16:11] LABS: Bacteria,Urine None Seen per hpf (None-Few); Hyaline Casts,Urine None Seen per lpf (None-Few); RBC,Urine 0-3 per hpf (0-3); Squamous Epithelial Cell,Urine Few per lpf (None-Few); WBC,Urine 0-3 per hpf (0-3)
[2018-01-29] MEDS ORDERED: Acetaminophen 325 MG TABLET PO PRN (20:11)
--- NOTE | 2018-01-29 21:15 | Internal Med History&Physical ---
Date of Encounter: 01/29/18 Time of Encounter: 21:12 Internal Medicine - H&P: HPI Chief complaint: weakness Admitted From: Home Plans for Post Hospital Care: Home History of present illness: Mr. 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 The patient states symptoms have been going on for approximately 2 weeks and progressively worse in nature. He has noticed dark stools however he does take an iron supplement. They have become more dark over the last couple of days. He has noticed increasing weakness which she describes as exertional and associated dizziness when standing up. It was acutely worse this morning. The patient denies chest pain. There is no shortness of breath at rest. Patient relatively comfortable resting in bed. No complaints when resting. He was seen to have a Hgb of 11 which is close to his baseline with a postive FOBT. A troponin level was also obtained, slightly elevated but on review of old records has been at such values many times. His INR was 3.2. EKG without changes. Past Med Surg Social Fam HX - Past Medical History Medical history: atrial fibrillation, CHF, COPD, coronary artery disease, GERD, hyperlipidemia, hypertension Additional medical history: CAROTID STENOSIS. SLEEP APNEA. HYPOXIA Psychiatric history: no psych history - Past Surgical History Surgical History: coronary bypass (CABG), heart valve replacement, herniorrhaphy , hip replacement, sinus surgery, vasectomy, pacemaker Additional surgical history: TAVR - Social History Smoking Status: Former smoker Smokeless Tobacco Status: No Alcohol use: none Drug use: none - Family History Mother Living Status: Age at : 67 Cause of : CHF Hx Family Cardiac Disorders: Yes Hx Family Endocrine Disorder: Yes Father Living Status: Age at : 95 Cause of : Colon cancer Hx Family Cancer: Yes Hx Family GI Disorders: Yes Sister Living Status: Hx Family Cardiac Disorders: Yes Brother Family Member Ethnicity: Non- Living Status: Hx Family Cardiac Disorders: No Hx Family Respiratory Disorders: No Hx Family Cancer: Yes Hx Family GI Disorders: No Hx Family Endocrine Disorder: No Internal Medicine - H&P: Meds Albuterol Neb [Proventil Neb] 3 ml IH Q4-6H PRN 10/29/15 [History] Atorvastatin [Lipitor] 80 mg PO DAILY 10/29/15 [History] Omeprazole [PriLOSEC] 20 mg PO DAILY #30 capsule. 11/09/15 [Rx] Clopidogrel [Plavix] 75 mg PO DAILY 05/21/16 [History] Albuterol Sulfate [Proair Hfa] 2 puff IH Q4H PRN 06/30/16 [History] Ferrous Sulfate [Iron] 325 mg PO DAILY 06/30/16 [History] Oxygen 1 each .ROUTE AD 06/30/16 [History] Docusate Sodium [Stool Softener] 100 mg PO DAILY 03/15/17 [History] Amiodarone [Cordarone] 200 mg PO DAILY 09/20/17 [History] Diltiazem CD (24hr) [Cardizem CD] 300 mg PO DAILY 09/20/17 [History] Acetaminophen [Tylenol] 650 mg PO Q6HR PRN tablet 09/22/17 [Rx] Furosemide [Lasix] 40 mg PO BID 30 Days #60 tab 09/22/17 [Rx] GuaiFENesin ER [Mucinex] 600 mg PO BID #20 tbbp.12hr 09/22/17 [Rx] Ipratropium/Albuterol Neb [Duoneb] 3 ml IH [id number] inhsol 09/22/17 [Rx] Metoprolol XL (24 HR) Succ [Toprol XL] 100 mg PO DAILY 30 Days #30 tab.er.24h [Rx] hydrALAZINE [HydrALAZINE] 25 mg PO Q8HR PRN 30 Days #90 tablet 09/22/17 [Rx] Fenofibrate Nanocrystallized [Fenofibrate] 145 mg PO DAILY 01/29/18 [History] Warfarin Sodium [Warfarin Sodium] 5 mg PO MOTUWEFRSA 01/29/18 [History] Warfarin Sodium [Warfarin Sodium] 7.5 mg PO SUTH 01/29/18 [History] 3 Allergy/AdvReac Type Severity Reaction Status Date / Time No Known Allergies Allergy Verified 01/29/18 15:21 All Systems PM: A 10-system review of systems was performed and is negative for pertinent findings except as documented above in the HPI. - Constitutional Vitals: Temp Pulse Resp BP Pulse Ox 97.8 F 61 17 149/64 99 01/29/18 18:38 01/29/18 18:38 01/29/18 18:38 01/29/18 18:38 01/29/18 18:38 Exam: Vitals: Reviewed and seemed to be within normal limits General: Lying comfortably in bed in no acute distress. Skin: Pale with multiple ecchymotic lesions on both forearms. HEENT: Slioghtly dry mucous membranes. (+) conjunctivae pallor. Neck: No lymphadenopathy. No JVD. Chest: Normal thoracic expansion. No wheezes, rales or rhonchi. Heart: Irregularly irregular. Grade 3/6 systolic murmur auscultated Abdomen: soft and non-tender to palpation. Extremities: No clubbing, cyanosis or edema. No calf tenderness. Normal distal pulses. Neurological: Awake, alert and oriented to person, place and time. No focal deficits. Psych: Adequate affect. Internal Med - H&P Results - Labs CBC & Chem 7: 01/29/18 13:49 01/29/18 13:49 - VTE Reasons for not Prescribing Prophylaxis: Not indicated-Anticoagulated or INR therapeutic - Assessment and plan (1) GI bleed Current Visit: Yes Status: Acute Assessment and plan: Confirmed with positive FOBT and now leading to fatigue and weakness. Seen to be present in the setting of INR elevation. The patient has a history of GI bleed while on anticoagulation in the past. -GI consult placed. -Will hold warfarin and repeat INR in the morning. -IV PPI BID. Qualifiers: GI bleed type/associated pathology: unspecified gastrointestinal hemorrhage type Qualified Code(s): K92.2 - Gastrointestinal hemorrhage, unspecified (2) Elevated INR Current Visit: Yes Status: Acute Assessment and plan: In the setting of warfarin use. Mildly elevated. -Currently on hold due to GI bleed. (3) Elevated troponin Current Visit: Yes Status: Acute Assessment and plan: The patient has no acute electrocardiographic changes concerning for ischemia, no chest pain or acute symptoms concerning for ACS. He has multiple slightly elevated troponins in the past. -No need to trend at this time. (4) A-fib Current Visit: No Status: Acute Assessment and plan: Rate controlled. -Continue metoprolol succinate 100mg daily. Qualifiers: Atrial fibrillation type: chronic Qualified Code(s): I48.2 - Chronic atrial fibrillation (5) CKD (chronic kidney disease) stage 3, GFR 30-59 ml/min Current Visit: No Status: Acute Assessment and plan: eGFR currently at baseline. (6) Symptomatic anemia Current Visit: Yes Status: Acute Assessment and plan: Will trend H/H and obtain type/screen. -Will transfuse if symptoms worsen or drop in Hgb <8g/dl. (7) COPD (chronic obstructive pulmonary disease) Current Visit: No Status: Chronic Assessment and plan: Stable. -Duonebs prn. Qualifiers: COPD type: unspecified COPD Qualified Code(s): J44.9 - Chronic obstructive pulmonary disease, unspecified (8) Diastolic CHF Current Visit: No Status: Chronic Assessment and plan: Will hold diuretics for now given his BP and clinically dry state. Qualifiers: Qualified Code(s): I50.32 - Chronic diastolic (congestive) heart failure (9) DVT prophylaxis Current Visit: Yes Status: Acute Assessment and plan: Intermittent pneumatic compression stockings ordered in the setting of GI bleed and high INR. - Time Spent With Patient Total time spent is greater than 50% in coordination of care (as documented) at patient's floor/unit and/or counseling patient: Greater than 35 minutes
[2018-01-29] MEDS: Ipratropium/Albuterol Neb 3 ML IH SCH (21:50)
[2018-01-29] MEDS: Metoprolol XL (24 HR) Succ 50 MG TAB.ER.24H PO SCH (21:50)
[2018-01-30] MEDS: Ipratropium/Albuterol Neb 3 ML IH SCH ×3 (03:37→23:13)
[2018-01-30 05:03] LABS: Basophils % 0.4 %; Eosinophils # 0.3 K/mcL (0.0-0.6); Eosinophils % 4.1 %; Hematocrit 32.5 % (37.5-50.1); Hemoglobin 9.8 g/dL (12.9-16.9); Lymphocytes # 0.9 K/mcL (0.6-4.6); Lymphocytes % 11.6 %; Mean Corpuscular HGB Conc 30.2 g/dL (31.6-35.5); Mean Corpuscular Hemoglobin 28.4 pg (28.0-33.3); Mean Corpuscular Volume 94.2 fL (83.0-100.0); Mean Platelet Volume 10.1 fL (9.4-12.4); Monocytes # 0.9 K/mcL (0.0-1.3); Monocytes % 11.1 %; Neutrophils # 5.8 K/mcL (1.6-8.9); Platelet Count 238 K/mcL (140-400); Red Blood Count 3.45 M/mcL (4.19-5.50); Red Cell Distribution Width 13.9 % (11.5-14.5); Segmented Neutrophils % 71.8 %
[2018-01-30 05:05] LABS: INR 2.6; Prothrombin Time 29.6 Seconds (9.4-12.1)
[2018-01-30] MEDS: Pantoprazole 40 MG VIAL IVP SCH ×2 (05:54→16:42)
[2018-01-30] MEDS ORDERED: Metoprolol XL (24 HR) Succ 50 MG TAB.ER.24H PO SCH (09:00)
[2018-01-30] MEDS: Diltiazem CD (24hr) 300 MG CAPSULE PO SCH (09:08)
[2018-01-30] MEDS: *HR* Amiodarone 200 MG TABLET PO SCH (09:08)
[2018-01-30] MEDS: Fenofibrate 54 MG TABLET PO SCH (09:10)
[2018-01-30 10:31] LABS: Hematocrit 29.9 % (37.5-50.1); Hemoglobin 9.3 g/dL (12.9-16.9)
--- NOTE | 2018-01-30 13:01 | Gastroenterology Consult Note ---
<Sil Moreno M - Last Filed: 01/30/18 13:08> Date of Encounter: 01/30/18 Time of Encounter: 10:45 - Assessment and plan (1) Anemia Current Visit: No Status: Acute Assessment and plan: Anticoagulation is on hold. He needs EGD/colonosopy to rule out esophagitis, gastritis, duodenitis, PUD, MW tear, avm or malignancy of the colon. Will prep today and plan for tomorrow, if INR is 2 or less, unable to give FFP or vit k due to pt history of valve replacement. Explained the risks and benefits at length and he is in agreement. Qualifiers: Anemia type: unspecified type Qualified Code(s): D64.9 - Anemia, unspecified (2) GI bleed Current Visit: Yes Status: Acute Qualifiers: GI bleed type/associated pathology: unspecified gastrointestinal hemorrhage type Qualified Code(s): K92.2 - Gastrointestinal hemorrhage, unspecified - Time Spent With Patient Total time spent is greater than 50% in coordination of care (as documented) at patient's floor/unit and/or counseling patient: GI History of Present Illness - Data of Consult Patient: new to practice Consult date: 01/30/18 Requesting Physician: Michael García - Consult Narrative Reason for consult: anemia, melena History of present illness: Mr. 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 The patient states symptoms have been going on for approximately 2 weeks and progressively worse in nature. He has noticed dark stools however he does take an iron supplement. They have become more dark over the last couple of days. He has noticed increasing weakness which she describes as exertional and associated dizziness when standing up. It was acutely worse this morning. The patient denies chest pain. There is no shortness of breath at rest. Patient relatively comfortable resting in bed. No complaints when resting. Stool was positive for occult blood. Hgb is 9.8 with a baseline of 11-12. His INR was 3.2 is down to 2.6 today. EKG without changes. EGD 11/14 angioectasias and gastritis capsule endoscopy 05/17 normal Anticoagulants: coumadin Past Med Surg Social Fam HX - Past Medical History Medical history: atrial fibrillation, CHF, COPD, coronary artery disease, GERD, hyperlipidemia, hypertension, other Additional medical history: CAROTID STENOSIS. SLEEP APNEA. HYPOXIA Psychiatric history: no psych history - Past Surgical History Surgical History: coronary bypass (CABG), heart valve replacement, herniorrhaphy , hip replacement, sinus surgery, vasectomy, pacemaker Additional surgical history: TAVR - Social History Smoking Status: Former smoker Smokeless Tobacco Status: No Alcohol use: none Drug use: none - Family History Mother Living Status: Age at : 67 Cause of : CHF Hx Family Cardiac Disorders: Yes Hx Family Endocrine Disorder: Yes Father Living Status: Age at : 95 Cause of : Colon cancer Hx Family Cancer: Yes Hx Family GI Disorders: Yes Sister Living Status: Hx Family Cardiac Disorders: Yes Brother Family Member Ethnicity: Non- Living Status: Hx Family Cardiac Disorders: No Hx Family Respiratory Disorders: No Hx Family Cancer: Yes Hx Family GI Disorders: No Hx Family Endocrine Disorder: No Review of Systems: GI: as per [place] GENERAL: denies fever, has some chills EYES: denies yellow discoloration ENT: denies pain with swallowing or difficulty swallowing CARDIO: denies chest pain, palpitations RESP: increased Shortness of breath with exertion : denies change in color of urine NEURO: increased weakness HEME: Denies any bruising MS: denies joint pain, joint swelling or back pain. DERM: denies rash or itching PSYCH: Denies history of anxiety or depression - Constitutional Vitals: Temp Pulse Resp BP Pulse Ox 98.1 F 65 16 152/61 92 01/30/18 10:27 01/30/18 10:27 01/30/18 10:27 01/30/18 10:27 01/30/18 10:27 Exam: CONSTITUTIONAL:~alert, no acute distress.~HEAD:~normocephalic.~EYES:~no jaundice.~NECK:~no obvious swelling.~HEART:~regular rate and rhythm, no murmurs , pacemaker noted.~LUNGS:~bilateral fair air entry.~ABDOMEN:~non distended, soft , non tender, no masses pulpable, no organomegaly.~RECTAL EXAM:~Deferred.~ EXTREMITIES:~no clubbing, cyanosis, 1+ BLE edema.~SKIN:~pallor noted, no stigmata of chronic liver disease.~NEUROLOGIC:~no obvious focal defect.~~~~ Results - Labs CBC & Chem 7: 01/30/18 09:53 01/29/18 13:49 Labs: Last Result Calcium 9.8 mg/dL (8.6-10.3) 01/29/18 13:49 Troponin I 0.04 ng/mL (< 0.04) H* 01/30/18 07:41 Entire Visit Hgb 9.3 g/dL (12.9-16.9) L 01/30/18 09:53 Hct 29.9 % (37.5-50.1) L 01/30/18 09:53 PT 29.6 Seconds (9.4-12.1) H 01/30/18 03:36 - ABG ABG results: PT/INR, D-dimer PT 29.6 Seconds (9.4-12.1) H 01/30/18 03:36 Consult Discharge Plan - Plan Referrals: Ervin Cole MD [Primary Care Provider] - <Ever Segovia - Last Filed: 01/30/18 18:22> Date of Encounter: 01/30/18 Time of Encounter: 17:55 - Time Spent With Patient Total time spent is greater than 50% in coordination of care (as documented) at patient's floor/unit and/or counseling patient: GI History of Present Illness - Data of Consult Requesting Physician: Michael García - Consult Narrative History of present illness: Mr. Momin is a 82 year old male - Constitutional Vitals: Temp Pulse Resp BP Pulse Ox 98.3 F 62 16 146/65 96 01/30/18 15:10 01/30/18 15:10 01/30/18 16:19 01/30/18 15:10 01/30/18 16:19 Results - Labs CBC & Chem 7: 01/30/18 15:16 01/29/18 13:49 Labs: Last Result Calcium 9.8 mg/dL (8.6-10.3) 01/29/18 13:49 Troponin I 0.04 ng/mL (< 0.04) H* 01/30/18 07:41 Entire Visit Hgb 9.7 g/dL (12.9-16.9) L 01/30/18 15:16 Hct 31.7 % (37.5-50.1) L 01/30/18 15:16 PT 29.6 Seconds (9.4-12.1) H 01/30/18 03:36 - ABG ABG results: PT/INR, D-dimer PT 29.6 Seconds (9.4-12.1) H 01/30/18 03:36 - Attending Attestation I have personally performed a face to face evaluation on this patient. I have reviewed and agree with the care plan. History and Exam by me shows: Pt seen. Patient with the melena/anemia does has a history of aortic valve replacement with chronic anticoagulation. Recommendation: EGD and colonoscopy when INR less than 2
[2018-01-30] MEDS ORDERED: Ipratropium/Albuterol Neb 3 ML IH PRN (15:00)
[2018-01-30 15:43] LABS: Hematocrit 31.7 % (37.5-50.1); Hemoglobin 9.7 g/dL (12.9-16.9)
[2018-01-30] MEDS ORDERED: SODIUM CHLORIDE/NAHCO3/KCL/PEG 4,000 ML SOLN.RECON PO ONE (17:00)
--- NOTE | 2018-01-30 18:33 | Internal Med Progress Note ---
Hospitalist Progress Note - Encounter Date of Encounter: 01/30/18 Time of Encounter: 09:45 - Subjective Interval History: Patient was seen and evaluated at bedside at 9:45 AM. He is alert, awake, oriented. Patient reports having black stools and denies abdominal pain. He denies nausea, vomiting. He denies headache, vision changes, chest pain, or shortness of breath. - Exam Vitals: Temp Pulse Resp BP Pulse Ox 97.9 F 76 18 151/65 92 01/30/18 18:23 01/30/18 18:23 01/30/18 18:23 01/30/18 18:23 01/30/18 18:23 Exam: General: Pt resting quietly on bed, no distress. Skin: pwd, no rashes, lesions, redness Neurological: Pt is alert and awake, oriented x 3, Speech is clear, PERRLA, EOMI , no nystagmus, no pronator drift. strength equal x 4 extremities HEENT: mucous mumbranes moist, no conjuctival pallor Neck: supple, no tracheal deviation, no lymphadenopathy, tenderness, no thyromegaly Heart: S1S2 heard without gallops, clicks, murmurs, no bradycardia or tachycardia, pt has no peripheral edema, pedal and radial pulses palpable bilaterally. Lungs: clear throughout without wheezing, rales, or ronchi, respirations are unlabored Abdomen: soft and non tender with bowel sound present Psych: Normal affect with good eye contact - Assessment and Plan (1) DVT prophylaxis Current Visit: Yes Status: Acute Assessment and Plan: SCDs ordered. No pharmacologic intervention in the setting of GI bleed and elevated INR. (2) Elevated INR Current Visit: Yes Status: Acute Assessment and Plan: Patient on chronic warfarin. Therapeutic at 2.6. Warfarin is being held. Continue to monitor labs Pharmacy to dose. (3) Elevated troponin Current Visit: Yes Status: Acute Assessment and Plan: Patient with flat, adynamic troponin elevation in the setting of chronic kidney disease. Patient denies chest pain. EKG is not concerning for ischemic changes. Patient appears to have chronically elevated troponins. We will trend 3. (4) GI bleed Current Visit: Yes Status: Acute Assessment and Plan: Patient with positive stool occult blood in the emergency department. Patient with dark stools, as well as anemia. Patient is symptomatic with the anemia reporting generalized weakness and dizziness as well. She has been evaluated by GI, he will have colonoscopy and EGD tomorrow. Continue to monitor overnight, we will continue to trend H&H. (5) Symptomatic anemia Current Visit: Yes Status: Acute Assessment and Plan: Patient with dark stools, generalized weakness and dizziness as well as declining hemoglobin. EGD and colonoscopy tomorrow. Warfarin has been held. Patient was stool occult blood positive in the emergency department. Trend H&H. Type and screen completed. 3. Transfuse if hemoglobin less than 8. (6) A-fib Current Visit: Yes Status: Acute Assessment and Plan: Rate controlled. Continue telemetry and beta gustabo. (7) COPD (chronic obstructive pulmonary disease) Current Visit: Yes Status: Chronic Assessment and Plan: No acute exacerbation. Patient is in no distress, lungs are clear and diminished, patient is at his his baseline O2 demand. Continue home medications and 02 as needed to maintain 02 sats > 92% (8) Diastolic CHF Current Visit: Yes Status: Chronic Assessment and Plan: No acute exacerbation. Diuretic has been held due to clinically dry state. Will continue to monitor pt for abiltiy to restart. (9) HTN (hypertension) Current Visit: Yes Status: Chronic Assessment and Plan: Chronic. Continue home medications. DVT Prophylaxis: SCDs as above. - Time Spent with Patient Total time spent is greater than 50% in coordination of care (as documented) at patient's floor/unit and/or counseling patient: less than 15 minutes Plan of Care Discussed with: patient Internal Medicine: Result - Labs CBC & Chem 7: 01/30/18 15:16 01/29/18 13:49 Labs: Short CBC 01/30/18 01/30/18 01/30/18 Range/Units 03:36 09:53 15:16 WBC 8.1 (4.3-11.1) K/mcL Hgb 9.8 L 9.3 L 9.7 L (12.9-16.9) g/dL Hct 32.5 L 29.9 L 31.7 L (37.5-50.1) % Plt Count 238 (140-400) K/mcL Neutrophils # 5.8 (1.6-8.9) K/mcL Cardiac Enzymes 01/30/18 Range/Units 07:41 Troponin I 0.04 H* (< 0.04) ng/mL - ABG Interpretation ABG results: PT/INR, D-dimer PT 29.6 Seconds (9.4-12.1) H 01/30/18 03:36 - VTE Reasons for not Prescribing Prophylaxis: Not indicated-Anticoagulated or INR therapeutic Documentation of Mechanical Device: Intermittent pneumatic compression device Consult Discharge Plan - Plan Referrals: Ervin Cole MD [Primary Care Provider] - (4) GI bleed Qualifiers: GI bleed type/associated pathology: unspecified gastrointestinal hemorrhage type Qualified Code(s): K92.2 - Gastrointestinal hemorrhage, unspecified (6) A-fib Qualifiers: Atrial fibrillation type: chronic Qualified Code(s): I48.2 - Chronic atrial fibrillation (7) COPD (chronic obstructive pulmonary disease) Qualifiers: COPD type: unspecified COPD Qualified Code(s): J44.9 - Chronic obstructive pulmonary disease, unspecified (8) Diastolic CHF Qualifiers: Qualified Code(s): I50.32 - Chronic diastolic (congestive) heart failure
[2018-01-30 19:45] LABS: Hematocrit 32.7 % (37.5-50.1); Hemoglobin 10.1 g/dL (12.9-16.9)
--- NOTE | 2018-01-30 20:40 | Electrocardiograph Report ---
[address] [address] Test Date: 2018-01-29 Pat Name: Bruce Momin Department: 103 Room: 3B11 Gender: M Machine Marker: JULIENNE : 1935 Requested By: [id number] Order Number: [id number] Reading MD: Jackie Roblero Measurements Intervals [place] Rate: 61 P: 153 [place]: 277 QRS: -23 QRSD: 135 T: 88 QT: 495 QTc: 499 Interpretive Statements ELECTRONIC ATRIAL PACEMAKER ELECTRONIC VENTRICULAR PACEMAKER ABNORMAL RHYTHM ECG Electronically Signed On 01-30-2018 17:15:46 EDT by Jackie Roblero
[2018-01-30] MEDS: Metoprolol XL (24 HR) Succ 50 MG TAB.ER.24H PO SCH (21:16)
[2018-01-31] MEDS: Ipratropium/Albuterol Neb 3 ML IH SCH ×4 (04:18→22:16)
[2018-01-31 05:24] LABS: Basophils % 0.3 %; Eosinophils # 0.3 K/mcL (0.0-0.6); Eosinophils % 3.3 %; Hematocrit 31.3 % (37.5-50.1); Hemoglobin 9.7 g/dL (12.9-16.9); Immature Granulocytes % 0.7 % (0-4); Lymphocytes # 0.9 K/mcL (0.6-4.6); Lymphocytes % 11.6 %; Mean Corpuscular Hemoglobin 29.5 pg (28.0-33.3); Mean Corpuscular Volume 95.1 fL (83.0-100.0); Mean Platelet Volume 9.6 fL (9.4-12.4); Monocytes # 0.9 K/mcL (0.0-1.3); Neutrophils # 5.4 K/mcL (1.6-8.9); Platelet Count 196 K/mcL (140-400); Red Blood Count 3.29 M/mcL (4.19-5.50); Red Cell Distribution Width 13.6 % (11.5-14.5); Segmented Neutrophils % 72.1 %
[2018-01-31 05:35] LABS: INR 1.9; Prothrombin Time 21.5 Seconds (9.4-12.1)
[2018-01-31] MEDS: Pantoprazole 40 MG VIAL IVP SCH ×2 (05:42→17:39)
[2018-01-31 05:43] LABS: BUN/Creatinine Ratio 14 (6-26); Blood Urea Nitrogen 19 mg/dL (8-23); Calcium 9.3 mg/dL (8.6-10.3); Carbon Dioxide 33 mEq/L (23-29); Chloride 103 mEq/L (98-107); Glucose 110 mg/dL (70-105); Osmolality,Calculated 291 (280-300); Potassium 4.1 mEq/L (3.5-5.1); Sodium 139 mEq/L (136-145); eGFR For Non-African Americans 51 (> 60)
[2018-01-31] MEDS: Diltiazem CD (24hr) 300 MG CAPSULE PO SCH (08:18)
[2018-01-31] MEDS: *HR* Amiodarone 200 MG TABLET PO SCH (08:18)
[2018-01-31] MEDS: Fenofibrate 54 MG TABLET PO SCH (08:18)
[2018-01-31] MEDS ORDERED: *HR* Propofol 200 MG/20 ML VIAL IVP ONE (13:40)
[2018-01-31] MEDS ORDERED: Lidocaine -MPF 2% 2 ML VIAL ONE (13:40)
--- NOTE | 2018-01-31 14:11 | Anesthesia Evaluation PreOp ---
Date of Encounter: 01/31/18 Time of Encounter: 14:22 - Past History Planned Operation: EGD, COLONOSCOPY Cardiac History: CHF, HTN, Hyperlipidemia, Arrhythmia (Afib, post ablation, Sinus node dysfunction, Heart block), Cardiac Surgery (AVR 2001, SAVANNAH 2015, on coumadin, supratheraputic INR on admission.), Pacemaker/ICD (Medtronic Pacemaker , DDDR, Pacer dependent), Other (PAD, Dat carotid stenosis.) Pulmonary History: COPD, AMARILYS Dx CIGAR [employer] History: Denies Any Significant HX Other Medical History: Renal (CKD stage 3), Bleeding (GI Bleed,) Anesthesia History: No Prior Anesthetic Complications, Past Anesthesia Alcohol Use: none Drug use: none Medications and Allergies Albuterol Neb [Proventil Neb] 3 ml IH Q4-6H PRN 10/29/15 [History] Atorvastatin [Lipitor] 80 mg PO DAILY 10/29/15 [History] Omeprazole [PriLOSEC] 20 mg PO DAILY #30 capsule. 11/09/15 [Rx] Clopidogrel [Plavix] 75 mg PO DAILY 05/21/16 [History] Albuterol Sulfate [Proair Hfa] 2 puff IH Q4H PRN 06/30/16 [History] Ferrous Sulfate [Iron] 325 mg PO DAILY 06/30/16 [History] Oxygen 1 each .ROUTE AD 06/30/16 [History] Docusate Sodium [Stool Softener] 100 mg PO DAILY 03/15/17 [History] Amiodarone [Cordarone] 200 mg PO DAILY 09/20/17 [History] Diltiazem CD (24hr) [Cardizem CD] 300 mg PO DAILY 09/20/17 [History] Acetaminophen [Tylenol] 650 mg PO Q6HR PRN tablet 09/22/17 [Rx] Furosemide [Lasix] 40 mg PO BID 30 Days #60 tab 09/22/17 [Rx] GuaiFENesin ER [Mucinex] 600 mg PO BID #20 tbbp.12hr 09/22/17 [Rx] Ipratropium/Albuterol Neb [Duoneb] 3 ml IH [id number] inhsol 09/22/17 [Rx] Metoprolol XL (24 HR) Succ [Toprol XL] 100 mg PO DAILY 30 Days #30 tab.er.24h [Rx] hydrALAZINE [HydrALAZINE] 25 mg PO Q8HR PRN 30 Days #90 tablet 09/22/17 [Rx] Fenofibrate Nanocrystallized [Fenofibrate] 145 mg PO DAILY 01/29/18 [History] Warfarin Sodium [Warfarin Sodium] 5 mg PO [id number] 01/29/18 [History] Warfarin Sodium [Warfarin Sodium] 7.5 mg PO SUTH 01/29/18 [History] 3 Allergy/AdvReac Type Severity Reaction Status Date / Time No Known Allergies Allergy Verified 01/29/18 15:21 - Meds/Allergy Pre-op Review Medications Reviewed: Yes Allergies Reviewed: Yes Anesthesia Results - Labs 01/31/18 05:10 01/31/18 05:10 Anesthesia Exam Vital Signs/O2 Sat, Most Current Temp Pulse Resp BP Pulse Ox 98.7 F 61 18 149/49 100 01/31/18 14:04 01/31/18 14:04 01/31/18 14:04 01/31/18 14:04 01/31/18 14:04 Height: 1.75 m Weight: 99 kg - BMI 32 NPO (# of Hours): 8 - HEENT Pupil (Motor): Pupils equal Mallampati: II Teeth: Edentulous Oral Opening: Greater than 3 - CIG[employer] LOC: Oriented - Cardiac Rhythm: Regular - Pulmonary Breath Sounds: bilateral Clear Anesthesia Assess/Plan ASA Score: 4 Modified Neil Scale for Level of Consciousness: Cooperative, oriented, and tranquil Anesthetic Plan: MAC Monitoring Plan: Standard Monitors Recovery Plan: Other
[2018-01-31] MEDS ORDERED: 0.9 % Sodium Chloride 1,000 ML IVC SCH (14:15)
[2018-01-31] MEDS ORDERED: hydrALAZINE 25 MG TABLET PO PRN (18:08)
--- NOTE | 2018-01-31 18:11 | Internal Med Progress Note ---
Hospitalist Progress Note - Encounter Date of Encounter: 01/31/18 Time of Encounter: 10:00 - Subjective Interval History: Patient was seen and evaluated at bedside at 1000 AM. He is alert, awake, oriented. Patient reports having black stools prior to admission, none here, and denies abdominal pain. He denies nausea, vomiting. He denies headache, vision changes, chest pain, or shortness of breath. He states that he is feeling well today and is aware of colonoscopy and EGD today, questions answered. - Exam Vitals: Temp Pulse Resp BP Pulse Ox 98.7 F 61 18 149/49 100 01/31/18 14:04 01/31/18 14:04 01/31/18 14:04 01/31/18 14:04 01/31/18 14:04 Exam: General: Pt resting quietly on bed, no distress. Skin: pwd, no rashes, lesions, redness Neurological: Pt is alert and awake, oriented x 3, Speech is clear, PERRLA, EOMI , no nystagmus, no pronator drift. strength equal x 4 extremities HEENT: mucous mumbranes moist, no conjuctival pallor Neck: supple, no tracheal deviation, no lymphadenopathy, tenderness, no thyromegaly Heart: S1S2 heard without gallops, clicks, murmurs, no bradycardia or tachycardia, pt has no peripheral edema, pedal and radial pulses palpable bilaterally. Lungs: clear throughout without wheezing, rales, or ronchi, respirations are unlabored Abdomen: soft and non tender with bowel sound present, no hepatomegaly. Rounded , slightly distended Psych: Normal affect with good eye contact - Assessment and Plan (1) DVT prophylaxis Current Visit: Yes Status: Acute Assessment and Plan: SCDs ordered. No pharmacologic intervention due to GI bleed and elevated INR. Warfarin pharmacy to dose restarted tonight, will likely have to bridge pt with Lovenox. Colonoscopy without evidence of GI bleed. (2) Elevated INR Current Visit: Yes Status: Acute Assessment and Plan: Patient on chronic warfarin. INR 1.9 today. Patient is postprocedure from his been started can, pharmacy to dose. Continue to monitor labs (3) Elevated troponin Current Visit: Yes Status: Acute Assessment and Plan: Patient with flat, adynamic troponin elevation in the setting of chronic kidney disease. Patient denies chest pain. EKG is not concerning for ischemic changes. Patient appears to have chronically elevated troponins. Troponin returned to normal. (4) GI bleed Current Visit: Yes Status: Acute Assessment and Plan: Patient with positive stool occult blood in the emergency department. Patient with dark stools, as well as anemia. Patient is symptomatic with the anemia reporting generalized weakness and dizziness as well. Colonoscopy completed today. Patient had to 4 mm polyps that were removed. Patient has severe internal hemorrhoids, as well as multiple small and large mouth diverticula in the sigmoid colon. GIrecommends use of fiber in diet daily , as well as Anusol HC cream twice daily. EGD also completed today. Esophagus, stomach, duodenum and jejunum were normal. Likely source of bleeding his internal hemorrhoids. We will start Anusol HC tonight, and we will send patient prescription for home. (5) Symptomatic anemia Current Visit: Yes Status: Acute Assessment and Plan: Patient with dark stools, generalized weakness and dizziness as well as decreased Hgb. EGD and colonoscopy without signs of bleeding. Warfarin has been restarted. Patient was stool occult blood positive in the emergency department. H and H have remained stable, around 9.5. Type and screen completed. Patient takes ferrous sulfate home, and his been restarted. Iron studies, folate, B12 and ferritin have been ordered for morning. (6) A-fib Current Visit: Yes Status: Acute Assessment and Plan: Rate controlled. Continue telemetry and beta gustabo. (7) COPD (chronic obstructive pulmonary disease) Current Visit: Yes Status: Chronic Assessment and Plan: No acute exacerbation. Patient is in no distress, lungs are clear and diminished, patient is at his his baseline O2 demand. Continue home medications and 02 as needed to maintain 02 sats > 92% (8) Diastolic CHF Current Visit: Yes Status: Chronic Assessment and Plan: No acute exacerbation. Lasix has been restarted. Patient appears to be euvolemic. (9) HTN (hypertension) Current Visit: Yes Status: Chronic Assessment and Plan: Chronic. Continue home medications. DVT Prophylaxis: SCDs are ordered. Patient will restart warfarin tonight. - Time Spent with Patient Total time spent is greater than 50% in coordination of care (as documented) at patient's floor/unit and/or counseling patient: less than 15 minutes Plan of Care Discussed with: patient Internal Medicine: Result - Labs CBC & Chem 7: 01/31/18 05:10 01/31/18 05:10 Labs: Short CBC 01/30/18 01/31/18 Range/Units 19:03 05:10 WBC 7.5 (4.3-11.1) K/mcL Hgb 10.1 L 9.7 L (12.9-16.9) g/dL Hct 32.7 L 31.3 L (37.5-50.1) % Plt Count 196 (140-400) K/mcL Neutrophils # 5.4 (1.6-8.9) K/mcL BMP 01/31/18 05:10 Sodium 139 Potassium 4.1 Chloride 103 Carbon Dioxide 33 H BUN 19 Creatinine 1.33 H Glucose 110 H Calcium 9.3 Cardiac Enzymes 01/30/18 Range/Units 19:02 Troponin I 0.03 (< 0.04) ng/mL - ABG Interpretation ABG results: PT/INR, D-dimer PT 21.5 Seconds (9.4-12.1) H 01/31/18 05:10 - VTE Reasons for not Prescribing Prophylaxis: Not indicated-Anticoagulated or INR therapeutic Documentation of Mechanical Device: Intermittent pneumatic compression device Consult Discharge Plan - Plan Referrals: Ervin Cole MD [Primary Care Provider] - (4) GI bleed Qualifiers: GI bleed type/associated pathology: unspecified gastrointestinal hemorrhage type Qualified Code(s): K92.2 - Gastrointestinal hemorrhage, unspecified (6) A-fib Qualifiers: Atrial fibrillation type: chronic Qualified Code(s): I48.2 - Chronic atrial fibrillation (7) COPD (chronic obstructive pulmonary disease) Qualifiers: COPD type: unspecified COPD Qualified Code(s): J44.9 - Chronic obstructive pulmonary disease, unspecified (8) Diastolic CHF Qualifiers: Qualified Code(s): I50.32 - Chronic diastolic (congestive) heart failure
[2018-01-31] MEDS ORDERED: Warfarin perPT PO PRN (18:20)
[2018-01-31] MEDS ORDERED: *HR* Warfarin 7.5 MG TABLET PO ONE (19:00)
[2018-01-31 20:22] LABS: % Iron Saturation 7 % (20-55); Iron 30 mcg/dL (65-175); Transferrin 302 mg/dL (203-362)
[2018-01-31 20:40] LABS: Ferritin 76 ng/mL (20-250)
[2018-01-31 20:47] LABS: Vitamin B12 372 pg/mL (250-1100)
[2018-01-31 20:49] LABS: Folate > 22.3 ng/mL (3.0-16.0)
[2018-01-31] MEDS: Metoprolol XL (24 HR) Succ 50 MG TAB.ER.24H PO SCH (21:10)
[2018-01-31] MEDS: Furosemide 20 MG TABLET PO SCH (21:10)
[2018-02-01] MEDS: Ipratropium/Albuterol Neb 3 ML IH SCH ×2 (03:35→10:57)
[2018-02-01 05:05] LABS: Basophils % 0.4 %; Eosinophils # 0.2 K/mcL (0.0-0.6); Hematocrit 31.3 % (37.5-50.1); Hemoglobin 9.7 g/dL (12.9-16.9); Immature Granulocytes % 0.7 % (0-4); Lymphocytes # 0.7 K/mcL (0.6-4.6); Lymphocytes % 8.3 %; Mean Corpuscular Hemoglobin 29.9 pg (28.0-33.3); Mean Corpuscular Volume 96.6 fL (83.0-100.0); Monocytes # 0.9 K/mcL (0.0-1.3); Monocytes % 11.1 %; Neutrophils # 6.2 K/mcL (1.6-8.9); Platelet Count 215 K/mcL (140-400); Red Blood Count 3.24 M/mcL (4.19-5.50); Red Cell Distribution Width 13.7 % (11.5-14.5); Segmented Neutrophils % 76.5 %
[2018-02-01 05:09] LABS: INR 1.6; Prothrombin Time 18.1 Seconds (9.4-12.1)
[2018-02-01 05:24] LABS: Calcium 9.1 mg/dL (8.6-10.3); Potassium 4.2 mEq/L (3.5-5.1)
[2018-02-01] MEDS: Pantoprazole 40 MG VIAL IVP SCH (05:49)
[2018-02-01 07:15] VITALS: BP 137/63
[2018-02-01] MEDS: Diltiazem CD (24hr) 300 MG CAPSULE PO SCH (08:58)
[2018-02-01] MEDS: Fenofibrate 54 MG TABLET PO SCH (08:58)
[2018-02-01] MEDS: Furosemide 20 MG TABLET PO SCH (08:59)
[2018-02-01] MEDS: *HR* Amiodarone 200 MG TABLET PO SCH (08:59)
--- NOTE | 2018-02-01 14:20 | Discharge Summary ---
- NOTES TO OUTPATIENT PROVIDER Notes to Outpatient Provider: INR 1.6 at discharge. Warfarin stopped for EGD/ colonoscopy. Warfarin restarted at his normal doses at discharge, will order repeat INR for PCP to follow. Orders not resulted at time of discharge: Pending orders 02/01/18 10:46 Surgical Pathology [PTH] Routine 02/02/18 04:00 INR/PT [Prothrombin Time INR] [COAG] AM 0400 02/03/18 04:00 INR/PT [Prothrombin Time INR] [COAG] AM 0400 Date of Encounter: 02/01/18 Time of Encounter: 08:50 - Discharge Diagnosis (1) DVT prophylaxis Priority: Secondary Status: Acute Assessment and Plan: SCDs ordered. No pharmacologic intervention due to possible GI bleed Warfarin pharmacy to dose restarted tonight, will likely have to bridge pt with Lovenox. Colonoscopy without evidence of GI bleed. (2) Elevated INR Priority: Secondary Status: Acute Assessment and Plan: Patient on chronic warfarin. INR 1.6 today. Consulted with pharmacy, states that pt's doseages and INR have been stable for several months and most likely will not need bridge with Lovenox. Will order INR for Sunday and have results sent to PCP. Continue to monitor labs (3) Elevated troponin Priority: Secondary Status: Acute Assessment and Plan: Patient with flat, adynamic troponin elevation in the setting of chronic kidney disease. Patient denies chest pain. EKG is not concerning for ischemic changes. Troponin returned to normal. (4) GI bleed Priority: Secondary Status: Acute Assessment and Plan: Patient with positive stool occult blood in the emergency department. Patient with dark stools, as well as anemia at home prior to admission. Patient is symptomatic with anemia reporting generalized weakness and dizziness as well. Colonoscopy completed 01/31. Patient had to 4 mm polyps that were removed. Patient has severe internal hemorrhoids, as well as multiple small and large mouth diverticula in the sigmoid colon. GIrecommends use of fiber in diet daily , as well as Anusol HC cream twice daily. EGD also completed today. Esophagus, stomach, duodenum and jejunum were normal. Likely source of bleeding his internal hemorrhoids. We will start Anusol HC tonight, and we will send patient prescription for home. Qualifiers: GI bleed type/associated pathology: unspecified gastrointestinal hemorrhage type Qualified Code(s): K92.2 - Gastrointestinal hemorrhage, unspecified (5) Symptomatic anemia Priority: Secondary Status: Acute Assessment and Plan: Patient with dark stools, generalized weakness and dizziness as well as decreased Hgb prompting admission. EGD and colonoscopy without signs of bleeding. Warfarin has been restarted, follow up INR with PCP on Sunday. Patient was stool occult blood positive in the emergency department. H and H have remained stable, around 9.7. Patient takes ferrous sulfate home, and his been restarted. Iron level is low at 30, percent sat is 7. I have increased ferrous sulfate to 325 mg by mouth twice daily. (6) A-fib Priority: Secondary Status: Chronic Assessment and Plan: Rate controlled. Continue telemetry and beta gustabo. Warfarin has been restarted. Qualifiers: Atrial fibrillation type: chronic Qualified Code(s): I48.2 - Chronic atrial fibrillation (7) COPD (chronic obstructive pulmonary disease) Priority: Secondary Status: Chronic Assessment and Plan: No acute exacerbation. Patient is in no distress, lungs are clear and diminished, patient is at his his baseline O2 demand. Continue home medications Qualifiers: COPD type: unspecified COPD Qualified Code(s): J44.9 - Chronic obstructive pulmonary disease, unspecified (8) Diastolic CHF Priority: Secondary Status: Chronic Assessment and Plan: No acute exacerbation. Lasix has been restarted. Patient appears to be euvolemic. Qualifiers: Qualified Code(s): I50.32 - Chronic diastolic (congestive) heart failure (9) HTN (hypertension) Priority: Secondary Status: Chronic Assessment and Plan: Chronic. Continue home medications. Qualifiers: Hypertension type: essential hypertension Qualified Code(s): I10 - Essential (primary) hypertension Hospital course: Mr. oMmin is a 82 year old male with past medical history significant for hypertension, coronary artery disease, CHF, iron deficiency anemia, leukocytosis , GI bleed, COPD, stage III renal disease, mitral stenosis. Patient presented with weakness, dark tarry stools. Guaiac positive in the emergency department. Patient had decrease in hemoglobin and is anemic. Patient already diagnosed with iron deficiency anemia and takes Ferrous sulfate 325 mg daily. EGD and colonoscopy showed no bleeding. He had 2 sessile polyps removed from the large intestine and colonoscopy. Patient with severe internal hemorrhoids, recommend increase fiber and add Anusol daily. Pathology report pending. Labs revealed total iron level and percent sat or low. Iron was increased. Patient will be sent home with prescription for ferrous sulfate twice daily, vitamin C, Anusol, Metamucil. He will be discharged home in stable condition, he will have repeat PT/INR in 3 days with results to primary care. He will follow-up with primary care in 7 days. Discharge discussed with: patient, nurse - Time Spent with Patient Total time spent providing and/or coordinating discharge services: Less than 30 minutes - Discharge Medications Prescriptions: Ascorbic Acid [Vitamin C] 500 mg PO BID #60 tablet.er Ferrous Sulfate 325 mg PO BIDWM #60 tablet Hydrocortisone [Anusol-Hc] 30 gm TP DAILY #1 tube Home Medications: Albuterol Neb [Proventil Neb] 3 ml IH Q4-6H PRN 10/29/15 [History] Atorvastatin [Lipitor] 80 mg PO DAILY 10/29/15 [History] Omeprazole [PriLOSEC] 20 mg PO DAILY #30 capsule. 11/09/15 [Rx] Clopidogrel [Plavix] 75 mg PO DAILY 05/21/16 [History] Albuterol Sulfate [Proair Hfa] 2 puff IH Q4H PRN 06/30/16 [History] Oxygen 1 each .ROUTE AD 06/30/16 [History] Docusate Sodium [Stool Softener] 100 mg PO DAILY 03/15/17 [History] Amiodarone [Cordarone] 200 mg PO DAILY 09/20/17 [History] Diltiazem CD (24hr) [Cardizem CD] 300 mg PO DAILY 09/20/17 [History] Acetaminophen [Tylenol] 650 mg PO Q6HR PRN tablet 09/22/17 [Rx] Furosemide [Lasix] 40 mg PO BID 30 Days #60 tab 09/22/17 [Rx] GuaiFENesin ER [Mucinex] 600 mg PO BID #20 tbbp.12hr 09/22/17 [Rx] Ipratropium/Albuterol Neb [Duoneb] 3 ml IH [id number] inhsol 09/22/17 [Rx] Metoprolol XL (24 HR) Succ [Toprol Xl] 100 mg PO DAILY 30 Days #30 tab.er.24h [Rx] hydrALAZINE [HydrALAZINE] 25 mg PO Q8HR PRN 30 Days #90 tablet 09/22/17 [Rx] Fenofibrate Nanocrystallized [Fenofibrate] 145 mg PO DAILY 01/29/18 [History] Warfarin Sodium 5 mg PO MOTUWEFRSA 01/29/18 [History] Warfarin Sodium 7.5 mg PO SUTH 01/29/18 [History] Ascorbic Acid [Vitamin C] 500 mg PO BID #60 tablet.er 02/01/18 [Rx] Ferrous Sulfate 325 mg PO BIDWM #60 tablet 02/01/18 [Rx] Hydrocortisone [Anusol-Hc] 30 gm TP DAILY #1 tube 02/01/18 [Rx] Allergies/Adverse Reactions: 3 Allergy/AdvReac Type Severity Reaction Status Date / Time No Known Allergies Allergy Verified 01/29/18 15:21 Date of admission: 01/29/18 15:57 Primary care physician: Ervin Cole MD Consults: 01/31/18 11:58 Consult to Occupational Therapy [CONS] Routine Comment: Evaluate, develop and implement POC Reason for Consult: possible discharge needs Does patient have active BEDREST order?: No Is patient medically & hemodynamically stable?: Yes Discharging clinician: Paulette Patel Anticipated date of discharge: 02/01/18 - Constitutional Vitals: Temp Pulse Resp BP Pulse Ox 97.5 F L 60 16 137/63 85 02/01/18 07:14 02/01/18 07:14 02/01/18 10:57 02/01/18 07:14 02/01/18 10:57 General appearance: Present: cooperative, A&O X 3, pleasant, no acute distress, answers questions appropriately - Head Head exam: Present: atraumatic, normal inspection, normocephalic - Eye Eye exam: Present: normal appearance, conjuntiva pink, sclera anicteric - Neck Neck exam general surgery: Present: supple, trachea midline. Absent: lymphadenopathy, tenderness - Respiratory Respiratory exam: Present: CTAB. Absent: accessory muscle use, chest wall tenderness, rales, respiratory distress, rhonchi, wheezes - Cardiovascular Cardiovascular exam: Present: RRR, +S1, +S2. Absent: diastolic murmur, gallop, rubs, systolic murmur - GI/Abdominal GI/Abdominal exam: Present: normal bowel sounds, soft, no peritoneal signs. Absent: distended, hepatomegaly, tenderness - Extremities Exam Extremities exam: Present: normal capillary refill, normal inspection, warm. Absent: calf tenderness, cyanotic, pedal edema, tenderness - Neurological Exam Neurological exam: Present: alert, oriented X3, no focal deficits. Absent: altered, facial droop, speech deficit - Skin Skin exam: Present: dry, intact, normal color, warm. Absent: rash - Patient Status Disposition: Home, Self-Care Condition: Good Functional capacity at discharge: independent ambulation Overall status at discharge: patient is progressing back to baseline - Discharge Instructions Follow Up With: Ervin Cole MD [Primary Care Provider] - 02/08/18 10:15 am Additional Instructions: Please follow up with your PCP as scheduled on 02/08 Have your labs drawn on Sunday 02/04, results will go to Dr. Cole Return to the ER as needed for any other problems or concerns, or if you symptoms return or worsen. Take your medications as directed. Anusol HC as written, take Metamucil daily Increase your iron to 2 times daily with Vitamin C Return to your normal diet and activities as tolerated. - Diet and Activity Activity: increase activity as tolerated Diet: advance to your usual diet - VTE Reasons for not Prescribing Prophylaxis: Not indicated-Anticoagulated or INR therapeutic Documentation of Mechanical Device: Intermittent pneumatic compression device
[2018-02-01] MEDS ORDERED: *HR* Warfarin 5 MG TABLET PO ONE (18:00)
== END 2018-02-01 15:56 | disposition home or self-care (01) ==
LOC: EMEROO 13:29 → 3BNU 13:29
PROVIDERS: ADMIT Hospitalist; ATTEND Hospitalist